=== PATIENT | male | born 1955 | race Caucasian/White ===

== ENCOUNTER → 2016-04-08 | Outpatient (CLI) | payer OTHER ==
[~2016-04-08] MED LIST: ADAL40KI SC; ASPI81TA28 PO; BACL10TA PO; CEPH500C PO; CLR10 PO; CYCL5TAB PO; DOCU-94 PO; DOXY100C76 PO; DRGTP50 TD; FNTTP50 TD; GABA1CAP5 PO; LORA24TA7 PO; LVT/20 PO; MULT-506 PO; NRN100 PO; OXYC-164 PO; OXYC-609 PO; OXYSR10 PO; RIVA1TAB4 PO; XRL15 PO
[2016-04-08 13:15] LABS: BASO % 0.6 %; BASO ABS # 0.05 K/uL (0-0.2); COMPLETE YES; EOS % 4.5 %; HEMATOCRIT 42.4 % (42-52); IG% 0.1 %; LYMPH % 26.1 %; LYMPH ABS # 2.02 K/uL (1.2-3.4); MEAN CORPUSCULAR HEMOGLOBIN 29.1 pg (25-34); MEAN CORPUSCULAR HGB CONC 34.2 g/dl (32-36); MEAN PLATELET VOLUME 9.3 fL (7.4-10.4); MONO % 15.1 %; NEUT % 53.6 %; PLATELET COUNT 359 K/uL (130-400); RED BLOOD COUNT 4.99 M/uL (4.7-6.1); WHITE BLOOD COUNT 7.75 K/uL (4.8-10.8)
[2016-04-08 13:31] LABS: ALT/SGPT 28 U/L (12-78); AST/SGOT 18 U/L (15-37); BLOOD UREA NITROGEN 16 mg/dl (7-18); CALCIUM 9.3 mg/dl (8.5-10.1); CARBON DIOXIDE 27 mmol/L (21-32); CHLORIDE 102 mmol/L (98-107); CREATININE 0.91 mg/dl (0.60-1.40); GLUCOSE 86 mg/dl (70-99); SODIUM 138 mmol/L (136-145)
[2016-04-08 13:34] LABS: ALB/GLOB RATIO 0.8 (0.9-2); ALKALINE PHOSPHATASE 120 U/L (45-117)
== END | disposition home or self-care (01) ==
LOC: C.LAB1850 12:08
PROVIDERS: ATTEND Internal Medicine
DX: K51.20 Ulcerative (chronic) proctitis without complications (principal)

== ENCOUNTER → 2016-04-20 | Outpatient (CLI) | payer OTHER ==
[~2016-04-20] MED LIST changes: -BACL10TA PO; -CEPH500C PO; -MULT-506 PO; -OXYC-164 PO
--- NOTE | 2016-04-20 11:26 | DIAGNOSTIC IMAGING REPORT ---
RIGHT SHOULDER MIN 2 VIEWS ROUTINE CLINICAL HISTORY: Right shoulder pain COMPARISON: None. DISCUSSION: No fractures or dislocations are visualized. Degenerative changes are present within the AC joint. Several corticated ossicles are visualized adjacent the superior margin of the distal clavicle. No peritendinous calcifications are visualized. IMPRESSION: 1. No acute fractures or dislocations 2. Degenerative changes in the AC joint. Electronically signed by: Fuad Godinez M.D. 04/20/2016 11:23 AM Dictated Date/Time: 04/20/2016 11:22 AM
--- NOTE | 2016-04-20 11:31 | DIAGNOSTIC IMAGING REPORT ---
LEFT SHOULDER 3 VIEWS HISTORY: M25.511 Shoulder pain, bilateral anterior shoulder pain x 2 weeks COMPARISON: None. FINDINGS: There is no fracture or dislocation. Soft tissues are unremarkable. No radiopaque foreign bodies. Degenerative changes are noted at the AC joint. Old, healed left posterior rib fractures. The left clavicle is intact. Mild cartilage space narrowing at the glenohumeral joint. IMPRESSION: Mild degenerative changes within the left shoulder. No acute fracture or dislocation. Electronically signed by: Jose Hernandez M.D. 04/20/2016 11:29 AM Dictated Date/Time: 04/20/2016 11:28 AM
== END | disposition home or self-care (01) ==
LOC: C.RAD1850 11:05
PROVIDERS: ATTEND Family Medicine
DX: Z96.649 Presence of unspecified artificial hip joint (principal); T84.038A Mechanical loosening of other internal prosthetic joint, initial encounter; Y83.1 Surgical operation with implant of artificial internal device as the cause of abnormal reaction of the patient, or of later complication, without mention of misadventure at the time of the procedure; M25.511 Pain in right shoulder; M25.512 Pain in left shoulder

== ENCOUNTER 2016-06-05 07:46 | Emergency (ER) | payer OTHER ==
[~2016-06-05] VITALS: Ht 175.3 cm; Wt 84.0 kg
[~2016-06-05 07:46] MED LIST changes: -ASPI81TA28 PO; -CLR10 PO; -CYCL5TAB PO; -DOCU-94 PO; -DOXY100C76 PO; -DRGTP50 TD; -FNTTP50 TD; -GABA1CAP5 PO; -NRN100 PO; -OXYC-609 PO; -OXYSR10 PO; -RIVA1TAB4 PO; -XRL15 PO
[2016-06-05 07:50] VITALS: TEMP 36.8; Ht 175.3 cm; Wt 84.0 kg
[2016-06-05] MEDS ORDERED: CYCL5TAB PO (07:57)
[2016-06-05] MEDS ORDERED: NRN100 PO (07:57)
[2016-06-05] MEDS ORDERED: OXYC-609 PO (07:57)
[2016-06-05] MEDS ORDERED: ASPI81TA28 PO (07:57)
[2016-06-05] MEDS ORDERED: DOCU-94 PO (07:57)
[2016-06-05] MEDS ORDERED: ONDANSETRON INJ 2 MG/ML 2 ML VIAL IV STA (08:14)
[2016-06-05] MEDS ORDERED: SODIUM CHLORIDE 0.9% 1000ML 1,000 ML IV STA (08:14)
[2016-06-05] MEDS ORDERED: KETOROLAC TROMETHAMINE 30 MG/ML VIAL IV STA (08:14)
[2016-06-05] MEDS ORDERED: FENTANYL 50 MCG/HR TDSY TD STA (08:14)
--- NOTE | 2016-06-05 08:18 | EMERGENCY ROOM VISIT NOTE ---
History Report prepared by Lurdes: Teresa Tarango Under the Supervision of: Dr. Eliseo Delgado M.D. First contact with patient: 07:49 Chief Complaint: HIP PAIN Stated Complaint: PAIN History of Present Illness The patient is a 60 year old male who presents to the Emergency Room with complaints of persistent right hip pain. He was brought to the ED via EMS and is accompanied by his . He reports he underwent a total hip revision at [facility] on May 21, 2016, performed by Dr. Galindo. His next follow up appointment is in July. He rates his current pain as a 7/10 and describes the pain as "throbbing" and feeling "like a Fabian horse" cramp". He has tried taking OxyContin and muscle relaxers, but states "nothing touches it". He denies any recent injury or trauma to the area, except for the surgery 2 weeks ago. The patient reports he originally had his hip replaced by Dr. Stacy at [facility] in [place]. He has not seen any local Orthopedist. He denies any numbness or tingling in his leg. He notes the original hip replacement left him with a foot drop on the right side, and that has been unchanged. His surgical incision appears to be healing well and he denies any redness or discharge from the area. Source of History: patient Onset: [employer] Position: other (right hip) Symptom Intensity: 7/10 Quality: cramping, other ("throbbing") Timing: other (persistent) Modifying Factors (Relieving): narcotics (OxyContin), other (muscle relaxers ) Associated Symptoms: No numbness (numbness or tingling in the leg) Review of Systems See HPI for pertinent positives & negatives. A total of 10 systems reviewed and were otherwise negative. Past Medical & Surgical Surgical Problems: (1) History of appendectomy (2) Hx of lithotripsy (3) S/P hip replacement Social History Smoking Status: Never Smoker Alcohol Use: occasionally Drug Use: none Marital Status: Housing Status: lives with family Occupation Status: employed Current/Historical Medications Scheduled Adalimumab (Humira Pen), 1 DOSE SC Q2WKS Aspirin (Aspirin Ec), 81 MG PO DAILY Docusate Sodium (Colace), 100 MG PO BID Fentanyl (Duragesic), 50 MCG TD CQ72HR Gabapentin (Gabapentin), 100 MG PO TID Scheduled PRN Cyclobenzaprine Hcl (Flexeril), 5 MG PO TID PRN for Muscle Spasms Oxycodone HCl (Oxycodone HCl), 5-10 MG PO Q4 PRN for Pain Allergies Coded Allergies: Hydromorphone (Verified Allergy, Unknown, MUSCLE SPASMS, 06/05/16) Morphine (Verified Allergy, Unknown, "NAUSEA", 06/05/16) Physical Exam Vital Signs Date Time Temp Pulse Resp B/P Pulse Ox O2 Delivery O2 Flow Rate FiO2 06/05/16 12:11 78 18 126/80 96 Room Air 06/05/16 12:04 78 18 126/80 96 06/05/16 10:41 100 18 133/83 96 Room Air 06/05/16 10:01 74 20 131/82 95 Room Air 06/05/16 07:50 36.8 98 20 141/85 99 Room Air Physical Exam GENERAL: Patient is a healthy-appearing well-nourished HEAD: Normocephalic atraumatic EYES: Ocular movements intact pupils equal and react to light OROPHARYNX mucous membranes are moist no exudates present no erythema or edema present NECK: Supple no nuchal rigidity CHEST: Good equal expansion LUNGS: Clear and equal to auscultation CARDIAC: Normal S1 and S2 ABDOMEN: Soft nontender no guarding BACK: No CVA tenderness EXTREMITIES: Healing surgical incision, no evidence of infection of surgical site, good ROM right hip. The patient can pinpoint his pain and states it actually feels better to press on the area. NEURO: Patient is following commands is answering questions appropriately. Alert and oriented x3 Cranial Nerves 2-12 grossly intact Medical Decision & Procedures ER Provider Diagnostic Interpretation: These X-Rays were reviewed and interpreted by myself and the radiologist. RIGHT FEMUR 2 VIEWS IMPRESSION: 1. No acute bony abnormality is seen in the right femur. 2. A right hip arthroplasty is in near-anatomic alignment, with evidence of interval revision as compared to 02/05/2016. There is no evidence of hardware malfunction. 3. Soft tissue edema overlying the right hip is nonspecific and likely related recent surgery. Electronically signed by: Mann Cantu M.D. 06/05/2016 9:59 AM SINGLE VIEW PELVIS IMPRESSION: 1. No acute bony abnormality is seen in the hips or pelvis. 2. A right hip arthroplasty is in near-anatomic alignment. There is evidence of interval revision is compared to 10/18/2013. Electronically signed by: Mann Cantu M.D. 06/05/2016 9:56 AM This Ultrasound was reviewed and interpreted by the radiologist and reviewed by myself. ULTRASOUND RIGHT LOWER EXTREMITY VENOUS IMPRESSION: There is no sonographic evidence of deep venous thrombosis identified in the right lower extremity. Electronically signed by: Mann Cantu M.D. 06/05/2016 9:59 AM Laboratory Results 06/05/16 08:35 Red Blood Count 3.26, Mean Corpuscular Volume 85.0, Mean Corpuscular Hemoglobin 28.2, Mean Corpuscular Hemoglobin Concent 33.2, Mean Platelet Volume 8.4, Neutrophils (%) (Auto) 66.0, Lymphocytes (%) (Auto) 21.7, Monocytes (%) (Auto) 8.2, Eosinophils (%) (Auto) 3.4, Basophils (%) (Auto) 0.6, Neutrophils # (Auto) 6.12, Lymphocytes # (Auto) 2.01, Monocytes # (Auto) 0.76, Eosinophils # (Auto) 0.32, Basophils # (Auto) 0.06 06/05/16 08:35 Test 06/05/16 08:35 White Blood Count 9.28 K/uL (4.8-10.8) Red Blood Count 3.26 M/uL (4.7-6.1) Hemoglobin 9.2 g/dL (14.0-18.0) Hematocrit 27.7 % (42-52) Mean Corpuscular Volume 85.0 fL (80-100) Mean Corpuscular Hemoglobin 28.2 pg (25-34) Mean Corpuscular Hemoglobin Concent 33.2 g/dl (32-36) Platelet Count 809 K/uL (130-400) Mean Platelet Volume 8.4 fL (7.4-10.4) Neutrophils (%) (Auto) 66.0 % Lymphocytes (%) (Auto) 21.7 % Monocytes (%) (Auto) 8.2 % Eosinophils (%) (Auto) 3.4 % Basophils (%) (Auto) 0.6 % Neutrophils # (Auto) 6.12 K/uL (1.4-6.5) Lymphocytes # (Auto) 2.01 K/uL (1.2-3.4) Monocytes # (Auto) 0.76 K/uL (0.11-0.59) Eosinophils # (Auto) 0.32 K/uL (0-0.5) Basophils # (Auto) 0.06 K/uL (0-0.2) RDW Standard Deviation 44.4 fL (36.4-46.3) RDW Coefficient of Variation 14.1 % (11.5-14.5) Immature Granulocyte % (Auto) 0.1 % Immature Granulocyte # (Auto) 0.01 K/uL (0.00-0.02) Erythrocyte Sedimentation Rate 61 mm/hr (0-14) Anion Gap 8.0 mmol/L (3-11) Est Creatinine Clear Calc Drug Dose 93.5 ml/min Estimated GFR () 109.8 Estimated GFR (Non- 94.8 BUN/Creatinine Ratio 16.2 (10-20) Uric Acid 3.9 mg/dl (2.6-7.2) Calcium Level 8.7 mg/dl (8.5-10.1) Total Bilirubin 0.3 mg/dl (0.2-1) Direct Bilirubin < 0.1 mg/dl (0-0.2) Aspartate Amino Transf (AST/SGOT) 20 U/L (15-37) Alanine Aminotransferase (ALT/SGPT) 55 U/L (12-78) Alkaline Phosphatase 326 U/L (45-117) C-Reactive Protein 3.47 mg/dl (0-0.29) Total Protein 7.2 gm/dl (6.4-8.2) Albumin 2.8 gm/dl (3.4-5.0) Thyroid Stimulating Hormone (TSH) 1.740 uIu/ml (0.300-4.500) Lyme Disease IgG Antibody NEG (NEG) Lyme Disease IgM Antibody NEG (NEG) Anti-Streptolysin O Antibody Screen POS IU/ml (<200 IU) Anti-Streptolysin O Antibody Titer 200 IU/ml (<200 IU) Labs reviewed by ED physician. Medications Administered Medications (Trade) Dose Ordered Sig/Angelina Route Start Time Stop Time Status Last Admin Dose Admin Sodium Chloride (Nss 1000ml) 1,000 ml @ 999 mls/hr Q1H1M STAT IV 06/05/16 08:14 06/05/16 09:14 DC 3/4/17 08:31 999 MLS/HR Ketorolac Tromethamine (Toradol Inj) 30 mg NOW STAT IV 06/05/16 08:14 06/05/16 08:17 DC 06/05/16 08:33 30 MG Fentanyl (Duragesic Patch) 50 mcg NOW STAT TD 06/05/16 08:14 06/05/16 08:17 DC 06/05/16 08:32 50 MCG Ondansetron HCl (Zofran Inj) 4 mg NOW STAT IV 06/05/16 08:14 06/05/16 08:17 DC 06/05/16 08:31 4 MG Morphine Sulfate (MoRPHine SULFATE INJ) 10 mg NOW STAT IV 06/05/16 09:05 06/05/16 09:07 DC 06/05/16 09:13 10 MG Metoclopramide HCl (Reglan Inj) 10 mg NOW STAT IV 06/05/16 09:05 06/05/16 09:07 DC 06/05/16 09:13 10 MG Morphine Sulfate 6 mg 6 mg NOW STAT IV 06/05/16 10:16 06/05/16 10:17 DC 06/05/16 10:16 6 MG Promethazine HCl/ Sodium Chloride (Phenergan Inj/ Nss 50ml) 51 ml @ 204 mls/hr NOW STAT IV 06/05/16 10:16 06/05/16 10:30 DC 06/05/16 10:41 204 MLS/HR ED Course 0807: Past medical records reviewed. The patient was evaluated in room B2. A complete history and physical examination was performed. 0814: Zofran 4 mg IV, Fentanyl 50 mcg TD, Toradol 30 mg IV, NSS 1000 ml @ 999 mls/hr IV. 0905: Reglan 10 mg IV, Morphine Sulfate 10 mg IV. 1015: I reevaluated the patient. He is still in some pain but feeling a little better. I discussed his results and discharge instructions and he verbalized complete understanding and agreement. 1016: Promethazine HCl 25 mg/NSS 51 ml @ 204 mls/hr IV, Morphine Sulfate 6 mg IV. Medical Decision Prior records reviewed and summarized above. Triage Nursing notes reviewed and agree them. The patient's history was concerning for traumatic injury. Differential diagnosis: Etiologies such as fracture, dislocation, neurovascular compromise, compartment syndrome, soft tissue injury, as well as others were entertained. This is a 60-year-old male who presents emergency department complaining of right hip pain. Patient was recently placed on Neurontin for "nerve pain.' Due to the surgery. The patient does not have any evidence of infection on examination and in addition the patient has free range of motion of the hip. Based on this finding I feel that an infection less likely. In addition the patient does not have an elevation in his white blood count. His ESR and CRP are elevated however this could be from the surgery. An IV was established, the patient is given normal saline bolus, Toradol and started on a fentanyl patch. The patient was then given morphine for the pain along with Zofran and Reglan. Repeat examination revealed much improvement patient's symptoms. The patient has a blood clot ultrasound. As he is point tender to the pain I again do not feel that this is an infection. The patient has been using a walker ever since his surgery. He was ambulated in the emergency department using the walker. I will trial the patient patches at home until follow-up with orthopedics. I stressed the patient the need to call orthopedics on Tuesday. I also offered case management to try and get the patient in touch with orthopedics however the patient refused. Impression Primary Impression: Hip pain Scribe Attestation The scribe's documentation has been prepared under my direction and personally reviewed by me in its entirety. I confirm that the note above accurately reflects all work, treatment, procedures, and medical decision making performed by me. Departure Information Dispostion Home / Self-Care Prescriptions Fentanyl (DURAGESIC) 50 Mcg Tdsy 50 MCG TD CQ72HR, #2 PATCH Prov: Eliseo Delgado MD 06/05/16 Referrals Jack Negro M.D. (PCP) Patient Instructions Fentanyl Transdermal patch - 72 hour, Fx Hip Surg Dc, Fx Hip Surg Home Recovery , My [facility] Additional Instructions Need follow up with Orthopaedic doctor this week You received narcotic or benzodiazepene medication while in the emergency room today. Do not drive, operate heavy machinery, or drink alcohol under the influence of this medication. You have been examined and treated today on an emergency basis only. This is not a substitute for, or an effort to provide, complete comprehensive medical care. It is impossible to recognize and treat all injuries or illnesses in a single emergency department visit. It is therefore important that you follow up closely with Dr Negro. Call as soon as possible for an appointment. Thank you for your time and consideration. I look forward to speaking with you again soon. Please don't hesitate to call us if you have any questions. Problem Qualifiers Primary Impression: Hip pain Laterality: right Qualified Codes: M25.551 - Pain in right hip
[2016-06-05 08:49] LABS: BASO % 0.6 %; BASO ABS # 0.06 K/uL (0-0.2); COMPLETE YES; EOS % 3.4 %; HEMATOCRIT 27.7 % (42-52); IG% 0.1 %; LYMPH % 21.7 %; LYMPH ABS # 2.01 K/uL (1.2-3.4); MEAN CORPUSCULAR HEMOGLOBIN 28.2 pg (25-34); MEAN CORPUSCULAR HGB CONC 33.2 g/dl (32-36); MEAN PLATELET VOLUME 8.4 fL (7.4-10.4); MONO % 8.2 %; PLATELET COUNT 809 K/uL (130-400); RED BLOOD COUNT 3.26 M/uL (4.7-6.1); WHITE BLOOD COUNT 9.28 K/uL (4.8-10.8)
[2016-06-05 09:04] LABS: ALT/SGPT 55 U/L (12-78); BLOOD UREA NITROGEN 13 mg/dl (7-18); BUN/CREATININE RATIO 16.2 (10-20); C-REACTIVE PROTEIN 3.47 mg/dl (0-0.29); CALCIUM 8.7 mg/dl (8.5-10.1); CARBON DIOXIDE 26 mmol/L (21-32); CHLORIDE 105 mmol/L (98-107); CREATININE 0.82 mg/dl (0.60-1.40); GLUCOSE 92 mg/dl (70-99); POTASSIUM 3.8 mmol/L (3.5-5.1); SODIUM 139 mmol/L (136-145); URIC ACID 3.9 mg/dl (2.6-7.2)
[2016-06-05] MEDS ORDERED: MoRPHine SULFATE 10 MG/ML CARP/VIAL IV STA ×2 (09:05→10:16)
[2016-06-05] MEDS ORDERED: METOCLOPRAMIDE HCL INJ 5 MG/ML 2 ML VIAL IV STA (09:05)
[2016-06-05 09:15] LABS: ALKALINE PHOSPHATASE 326 U/L (45-117); AST/SGOT 20 U/L (15-37)
[2016-06-05 09:30] LABS: ANTI-STREP O SCR: 5YRS OR > POS IU/ml (<200 IU)
[2016-06-05 09:44] LABS: ANTI-STREP O TITRE: 5YR OR > 200 IU/ml (<200 IU)
[2016-06-05 09:52] LABS: LYME DISEASE AB IGG NEG (NEG)
[2016-06-05 09:55] LABS: LYME DISEASE AB IGM NEG (NEG)
--- NOTE | 2016-06-05 09:57 | DIAGNOSTIC IMAGING REPORT ---
SINGLE VIEW PELVIS CLINICAL HISTORY: Right hip pain. FINDINGS: An AP pelvic radiograph is compared to study dated 10/18/2013. The skeletal structures are osteopenic. No fracture is seen. A right hip arthroplasty is in near-anatomic alignment. There is evidence of interval arthroplasty revision as compared to the 10/18/2013 examination. Mild arthritic change is noted in the left hip. There is minimal sclerotic change in the sacroiliac joints. Heterotopic bone is again seen superior to the greater trochanter of the right femur. The overlying soft tissues are within normal limits. Surgical clips are noted along the spermatic cord bilaterally. Phlebolith are observed in the pelvis. There is a nonobstructed abdominal bowel gas pattern. IMPRESSION: 1. No acute bony abnormality is seen in the hips or pelvis. 2. A right hip arthroplasty is in near-anatomic alignment. There is evidence of interval revision is compared to 10/18/2013. Electronically signed by: Mann Cantu M.D. 06/05/2016 9:56 AM Dictated Date/Time: 06/05/2016 9:54 AM
--- NOTE | 2016-06-05 10:00 | DIAGNOSTIC IMAGING REPORT ---
RIGHT FEMUR 2 VIEWS CLINICAL HISTORY: Right hip pain. Recent arthroplasty revision. FINDINGS: AP and crosstable lateral views of the right femur are correlated with radiographs of the right hip dated 02/05/2016. The skeletal structures are osteopenic. No fracture is seen. A right hip arthroplasty is in near-anatomic alignment. There is evidence of interval revision as compared to 02/05/2016. No periprosthetic lucency is identified. Heterotopic bone superior to the greater trochanter of the right femur is unchanged from previous. The knee joint is grossly maintained. Soft tissue edema overlies the right hip. Surgical clips project over the right hemiscrotum. IMPRESSION: 1. No acute bony abnormality is seen in the right femur. 2. A right hip arthroplasty is in near-anatomic alignment, with evidence of interval revision as compared to 02/05/2016. There is no evidence of hardware malfunction. 3. Soft tissue edema overlying the right hip is nonspecific and likely related recent surgery. Electronically signed by: Mann Cantu M.D. 06/05/2016 9:59 AM Dictated Date/Time: 06/05/2016 9:56 AM
--- NOTE | 2016-06-05 10:01 | DIAGNOSTIC IMAGING REPORT ---
ULTRASOUND RIGHT LOWER EXTREMITY VENOUS CLINICAL HISTORY: Right leg pain and swelling. COMPARISON STUDY: Right lower extremity venous ultrasound dated 01/30/2009. TECHNIQUE: Real-time, grayscale, and color Doppler sonography of the deep veins of the right lower extremity was performed from the inguinal crease to the calf. Compression and augmentation were utilized. FINDINGS: There is no sonographic evidence of deep venous thrombosis identified in the right lower extremity. The common femoral, superficial femoral, and popliteal veins are patent and normally compressible. The greater saphenous vein and the profunda femoris vein at the junction with the common femoral vein are clear. The visualized calf veins are patent. IMPRESSION: There is no sonographic evidence of deep venous thrombosis identified in the right lower extremity. Electronically signed by: Mann Cantu M.D. 06/05/2016 9:59 AM Dictated Date/Time: 06/05/2016 9:59 AM
[2016-06-05] MEDS ORDERED: PROMETHAZINE HCL INJ 25 MG in SODIUM CHLORIDE 0.9% 50ML 50 ML IV STA (10:16)
[2016-06-05] MEDS ORDERED: FNTTP50 TD (10:17)
[2016-06-05 12:11] VITALS: BP 126/80; PULSE 78; O2SAT 96
[2016-06-13] MEDS ORDERED: XRL15 PO (12:11)
[2016-06-13] MEDS ORDERED: RIVA1TAB4 PO (12:11)
[2016-07-30] MEDS ORDERED: GABA1CAP5 PO (09:47)
[2016-12-30] MEDS ORDERED: CLR10 PO (09:12)
[2016-12-30] MEDS ORDERED: DOXY100C76 PO (09:13)
== END 2016-06-05 12:09 | disposition home or self-care (01) ==
LOC: EDBD 07:46 → C.EDB 07:47
DX: M25.551 Pain in right hip (principal); Z79.82 Long term (current) use of aspirin; Z79.899 Other long term (current) drug therapy

== ENCOUNTER 2016-06-12 13:31 | Observation (INO) | payer OTHER ==
[~2016-06-12] VITALS: Ht 175.3 cm; Wt 79.9 kg
[~2016-06-12 13:31] MED LIST changes: +ASPI81TA28 PO; +CYCL5TAB PO; +DOCU-94 PO; +FNTTP50 TD; -LORA24TA7 PO; -LVT/20 PO; +NRN100 PO; +OXYC-609 PO
--- NOTE | 2016-06-12 14:22 | EMERGENCY ROOM VISIT NOTE ---
History Report prepared by [place]: Tabby George Under the Supervision of: Dr. Everett Beltrán M.D. First contact with patient: 14:05 Chief Complaint: LEG PAIN,LEG INJURY Stated Complaint: LEG PAIN History of Present Illness The patient is a 60 year old male who presents to the Emergency Room with complaints of waxing and waning right leg pain over the past week, worsened over the past 30 hours. He states that it radiates through his right buttocks, right quadriceps, right hamstring, and right calf. He also complains of numbness in his right foot. The patient was treated for similar pain in the emergency room a week ago. The patient had hip replacement revision surgery on May 21 of this year at [facility]. He was discharged from the hospital after 4 days and then stayed in a hotel in [place] for 4-5 days before getting his sean out. Afterwards, he rode back to [place] in a car and he has been having similar pain since then. He has also had right foot drop since the surgery. He can only get his leg pain under control for brief periods of time. He had in home and outpatient physical therapy, but the physical therapists did not want to proceed because of his persistent pain. The patient has been looking into seeing a neurologist here for his pain for an EMG , but his doctor at [place] wants the patient to see a ticket broker. The patient has a history of spinal stenosis. He denies fevers, chills, chest pain, shortness of breath, bladder problems, back pain, or other complaints. The patient was on Humira for IBS but was taken off of it prior to his surgery. He has not had any bowel problems since discontinuing the Humira. He is taking Oxycodone and Gabapentin with little relief. Source of History: patient, spouse/significant other Onset: over a week ago Position: leg (right) Timing: waxes/wanes, worsening Associated Symptoms: + numbness (right foot), No SOB, No back pain, No chest pain, No chills, No fevers Review of Systems See HPI for pertinent positives & negatives. A total of 10 systems reviewed and were otherwise negative. Past Medical & Surgical Medical Problems: (1) DVT (deep venous thrombosis) (2) Intractable pain Surgical Problems: (1) History of appendectomy (2) Hx of lithotripsy (3) S/P hip replacement Old medical records were reviewed. Nurse's notes were reviewed and I agree with. Family History No pertinent family history stated. Social History Smoking Status: Never Smoker Alcohol Use: occasionally Drug Use: none Marital Status: Housing Status: lives with family Occupation Status: employed Current/Historical Medications Scheduled Adalimumab (Humira Pen), 1 DOSE SC Q2WKS Aspirin (Aspirin Ec), 81 MG PO BID Docusate Sodium (Colace), 100 MG PO BID Fentanyl (Duragesic), 50 MCG TD CQ72HR Gabapentin (Gabapentin), 300 MG PO TID Scheduled PRN Cyclobenzaprine Hcl (Flexeril), 5 MG PO TID PRN for Muscle Spasms Oxycodone HCl (Oxycodone HCl), 5-10 MG PO Q4 PRN for Pain Allergies Coded Allergies: Hydromorphone (Verified Allergy, Unknown, MUSCLE SPASMS, 06/12/16) Morphine (Verified Allergy, Unknown, "NAUSEA", 06/12/16) pt said was given morphine last time here with no reaction, confirms hydromorphone allergy Physical Exam Vital Signs Date Time Temp Pulse Resp B/P Pulse Ox O2 Delivery O2 Flow Rate FiO2 06/12/16 16:34 87 20 131/82 96 Room Air 06/12/16 15:01 101 18 124/93 98 Room Air 06/12/16 13:35 36.7 101 17 136/91 98 Room Air Physical Exam General: Mildly uncomfortable appearing middle aged male who has pain with right leg movement. Well developed well nourished, breathing comfortably on room air. Normal speech HEENT: Normal cephalic atraumatic. Pupils are equal round and reactive to light. Extraocular movements are intact. Oropharynx is pink with moist mucous membranes. No swelling of the mouth lips or tongue. Neck: Supple with a midline trachea. No meningeal signs or stiffness, no JVD or bruits. No Stridor. Chest: Clear to auscultation bilaterally. No wheezes or rhonchi. No increased work of breathing. Heart: regular rate and rhythm. Abdomen: Soft nontender, nondistended without rebound guarding or rigidity. Extremities: The incision is well-healing without redness, warmth, or drainage. Mild swelling along the incision site. Calves are nontender without swelling. Spine/Back. Non tender to palpation. No CVA tenderness Skin: Good turgor without rashes. Neurologic exam: Cranial nerves two through 12 are intact. Foot drop on the right; otherwise motor and sensation are intact and symmetrical throughout. Medical Decision & Procedures ER Provider Diagnostic Interpretation: Radiology results as stated below per my review and radiologist interpretation: ULTRASOUND RIGHT VENOUS DOPP LOWER EXT UNILAT CLINICAL HISTORY: Right leg pain and swelling COMPARISON STUDY: 06/05/2016 FINDINGS: No thrombus is visualized within the common femoral superficial femoral or popliteal veins. There is nonocclusive thrombus present within the right peroneal veins. The anterior tibial posterior tibial veins appear patent. IMPRESSION: Right peroneal vein DVT. No evidence of aqwtu-[id number]-jmbq thrombus. Electronically signed by: Fuad Godinez M.D. 06/12/2016 4:27 PM Dictated Date/Time: 06/12/2016 4:25 PM ARTERIAL DOPPLER ULTRASOUND THE RIGHT LOWER EXTREMITY CLINICAL HISTORY: Right leg pain and swelling COMPARISON STUDY: No previous studies for comparison. FINDINGS: The left arm brachial systolic pressure was 125 mmHg. The right posterior tibial pressure was 157 mmHg systolic. The left dorsalis pedis pressure was 151 mmHg systolic. This yields a right leg ankle arm index of 1.26. No high velocity jets were visualized. There is triphasic flow within the common femoral superficial femoral and popliteal arteries. There is triphasic flow within the anterior tibial and posterior tibial arteries proximally. There is monophasic flow within the distal posterior tibial. There is triphasic flow within the peroneal. IMPRESSION: No evidence of right lower extremity arterial stenosis. Electronically signed by: Fuad Godinez M.D. 06/12/2016 4:32 PM Dictated Date/Time: 06/12/2016 4:27 PM Laboratory Results 06/12/16 14:53 Red Blood Count 3.91, Mean Corpuscular Volume 82.9, Mean Corpuscular Hemoglobin 27.4, Mean Corpuscular Hemoglobin Concent 33.0, Mean Platelet Volume 8.4, Neutrophils (%) (Auto) 62.9, Lymphocytes (%) (Auto) 27.9, Monocytes (%) (Auto) 5.8, Eosinophils (%) (Auto) 2.8, Basophils (%) (Auto) 0.5, Neutrophils # (Auto) 5.18, Lymphocytes # (Auto) 2.30, Monocytes # (Auto) 0.48, Eosinophils # (Auto) 0.23, Basophils # (Auto) 0.04 06/12/16 14:53 Test 06/12/16 14:53 White Blood Count 8.24 K/uL (4.8-10.8) Red Blood Count 3.91 M/uL (4.7-6.1) Hemoglobin 10.7 g/dL (14.0-18.0) Hematocrit 32.4 % (42-52) Mean Corpuscular Volume 82.9 fL (80-100) Mean Corpuscular Hemoglobin 27.4 pg (25-34) Mean Corpuscular Hemoglobin Concent 33.0 g/dl (32-36) Platelet Count 569 K/uL (130-400) Mean Platelet Volume 8.4 fL (7.4-10.4) Neutrophils (%) (Auto) 62.9 % Lymphocytes (%) (Auto) 27.9 % Monocytes (%) (Auto) 5.8 % Eosinophils (%) (Auto) 2.8 % Basophils (%) (Auto) 0.5 % Neutrophils # (Auto) 5.18 K/uL (1.4-6.5) Lymphocytes # (Auto) 2.30 K/uL (1.2-3.4) Monocytes # (Auto) 0.48 K/uL (0.11-0.59) Eosinophils # (Auto) 0.23 K/uL (0-0.5) Basophils # (Auto) 0.04 K/uL (0-0.2) RDW Standard Deviation 42.3 fL (36.4-46.3) RDW Coefficient of Variation 14.0 % (11.5-14.5) Immature Granulocyte % (Auto) 0.1 % Immature Granulocyte # (Auto) 0.01 K/uL (0.00-0.02) Erythrocyte Sedimentation Rate 80 mm/hr (0-14) Anion Gap 10.0 mmol/L (3-11) Est Creatinine Clear Calc Drug Dose 103.6 ml/min Estimated GFR () 114.6 Estimated GFR (Non- 98.9 BUN/Creatinine Ratio 11.4 (10-20) Calcium Level 9.1 mg/dl (8.5-10.1) Iron Level 21 mcg/dl (35-175) Total Iron Binding Capacity 270 mcg/dl (250-450) C-Reactive Protein 1.72 mg/dl (0-0.29) Laboratory studies as stated above per my review. Medications Administered Medications (Trade) Dose Ordered Sig/Angelina Route Start Time Stop Time Status Last Admin Dose Admin Ondansetron HCl (Zofran Inj) 4 mg NOW STAT IV 06/12/16 14:30 06/12/16 14:32 DC 06/12/16 15:00 4 MG Morphine Sulfate (MoRPHine SULFATE INJ) 6 mg NOW STAT IV 06/12/16 14:30 06/12/16 14:32 DC 06/12/16 15:00 6 MG Ketorolac Tromethamine (Toradol Inj) 30 mg NOW STAT IV 06/12/16 16:21 06/12/16 16:22 DC 06/12/16 16:34 30 MG ED Course 1409: Past medical records reviewed. The patient was evaluated in room B5, and a complete history and physical examination were performed. 1430: Ordered Morphine Sulfate 6 mg IV, Zofran Inj 4 mg IV. 1431: The patient has had mild nausea with Morphine in the past but states that he did well with Morphine and Zofran during his last visit. 1621: Ordered Toradol Inj 30 mg IV. 1640: Upon reevaluation, the patient is feeling a little better. I discussed the results and treatment plan with the patient. He verbalized agreement of the treatment plan. The patient will be evaluated for further management. 1645: I discussed the case with Dr. Jones, [facility] Hospitalist. The patient will be evaluated for further management. Medical Decision Differential diagnosis includes DVT, infection, arterial compromise, compartment syndrome, nerve damage, sciatica. This patient comes in as described above. He was placed in room B5. He is here for treatment and evaluation of right leg pain. He suffered a foot drop after surgery and continues to have leg pain. it's been pretty severe at home and he has a difficult time getting around and controlling the pain. Additionally they have been having a hard time getting him in with any specialists for follow-up and his is very frustrated. On exam, he does have a foot drop the and appears to be healing well, he is neurologically and neurovascularly intact otherwise. IV access established, blood work was obtained and I did ultrasound of the venous and arterial systems. arterial systems looked okay. the venous system shows a distal DVT in the right lower extremity that was not there a week ago. His sedimentation rate and CRP are mildly elevated. He was given IV morphine and IV Zofran was feeling better is also given IV Toradol. I do think he needs to be admitted for treatment of his DVT as well as pain management and coordination of his care. He does need to get in with a neurologist may be of orthopedist see him locally as well as pain management. I did have Dr. Arauz and he said he will admit him for these measures. Consults Time Called: 1635 Consulting Physician: Dr. Jones, [facility] Hospitalist Returned Call: 1645 I discussed the case with him. The patient will be evaluated for further management. Impression Primary Impression: DVT (deep venous thrombosis) Additional Impressions: Foot drop Postoperative pain Scribe Attestation The scribe's documentation has been prepared under my direction and personally reviewed by me in its entirety. I confirm that the note above accurately reflects all work, treatment, procedures, and medical decision making performed by me. Departure Information Dispostion Being Evaluated By Hospitalist Referrals ,Jack Calderon M.D. (PCP) Patient Instructions My [facility] Problem Qualifiers
[2016-06-12] MEDS ORDERED: MoRPHine SULFATE 10 MG/ML CARP/VIAL IV STA (14:30)
[2016-06-12] MEDS ORDERED: ONDANSETRON INJ 2 MG/ML 2 ML VIAL IV STA (14:30)
[2016-06-12 15:00] LABS: BASO % 0.5 %; BASO ABS # 0.04 K/uL (0-0.2); COMPLETE YES; EOS % 2.8 %; HEMATOCRIT 32.4 % (42-52); IG% 0.1 %; LYMPH % 27.9 %; MEAN CELL VOLUME 82.9 fL (80-100); MEAN CORPUSCULAR HEMOGLOBIN 27.4 pg (25-34); MEAN PLATELET VOLUME 8.4 fL (7.4-10.4); MONO % 5.8 %; NEUT % 62.9 %; PLATELET COUNT 569 K/uL (130-400); RED BLOOD COUNT 3.91 M/uL (4.7-6.1); WHITE BLOOD COUNT 8.24 K/uL (4.8-10.8)
[2016-06-12 15:14] LABS: BUN/CREATININE RATIO 11.4 (10-20); C-REACTIVE PROTEIN 1.72 mg/dl (0-0.29); CALCIUM 9.1 mg/dl (8.5-10.1); CREATININE 0.74 mg/dl (0.60-1.40); POTASSIUM 3.9 mmol/L (3.5-5.1)
[2016-06-12] MEDS ORDERED: KETOROLAC TROMETHAMINE 30 MG/ML VIAL IV STA (16:21)
--- NOTE | 2016-06-12 16:28 | DIAGNOSTIC IMAGING REPORT ---
ULTRASOUND RIGHT VENOUS DOPP LOWER EXT UNILAT CLINICAL HISTORY: Right leg pain and swelling COMPARISON STUDY: 06/05/2016 FINDINGS: No thrombus is visualized within the common femoral superficial femoral or popliteal veins. There is nonocclusive thrombus present within the right peroneal veins. The anterior tibial posterior tibial veins appear patent. IMPRESSION: Right peroneal vein DVT. No evidence of [id number] thrombus. Electronically signed by: Fuad Godinez M.D. 06/12/2016 4:27 PM Dictated Date/Time: 06/12/2016 4:25 PM
--- NOTE | 2016-06-12 16:33 | DIAGNOSTIC IMAGING REPORT ---
ARTERIAL DOPPLER ULTRASOUND THE RIGHT LOWER EXTREMITY CLINICAL HISTORY: Right leg pain and swelling COMPARISON STUDY: No previous studies for comparison. FINDINGS: The left arm brachial systolic pressure was 125 mmHg. The right posterior tibial pressure was 157 mmHg systolic. The left dorsalis pedis pressure was 151 mmHg systolic. This yields a right leg ankle arm index of 1.26. No high velocity jets were visualized. There is triphasic flow within the common femoral superficial femoral and popliteal arteries. There is triphasic flow within the anterior tibial and posterior tibial arteries proximally. There is monophasic flow within the distal posterior tibial. There is triphasic flow within the peroneal. IMPRESSION: No evidence of right lower extremity arterial stenosis. Electronically signed by: Fuad Godinez M.D. 06/12/2016 4:32 PM Dictated Date/Time: 06/12/2016 4:27 PM
[2016-06-12] MEDS ORDERED: ALUMINUM/MAGNESIUM/SIMETH (MAALOX MAX) 30 ML UDC PO PRN (17:45)
[2016-06-12] MEDS ORDERED: MAGNESIUM HYDROXIDE SUSP 30 ML UDC PO PRN (17:45)
[2016-06-12] MEDS ORDERED: POLYETHYLENE (MIRALAX) 17 GM PACK PO PRN (17:45)
[2016-06-12] MEDS ORDERED: HYDROmorphone INJ 1 MG/ML SYR ONE (17:59)
[2016-06-12] MEDS ORDERED: IV FLUIDS COMPLETED PRN (18:00)
[2016-06-12 18:03] LABS: TOTAL IRON BINDING CAPACITY 270 mcg/dl (250-450)
--- NOTE | 2016-06-12 18:10 | History and Physical ---
History & Physical Date & Time of Service: Jun 12, 2016 at 17:50 Chief Complaint: Leg Pain Primary Care Physician: Jack Negro M.D. History of Present Illness Source: patient 60 y/o M w/Hx UC, spinal stenosis. Pt had a hip replacement 03/19 and then a revision at [facility] 05/21. After the revision the pt developed foot drop and progressive pain extending from his gluteal region down into his foot which he describes as severe and debilitating. The pt is having increasing difficulty mobilizing and sleeping and has not had relief with his current pain regimen. He was told to make an appt with a neurologist for an EMG but has not been able to do so as of yet. A LE doppler was obtained in the ER revealing a peroneal DVT. He has a history of spinal stenosis and received an epidural during surgery. He has not had recent imaging of his lower back. He denies fevers, SOB, palpitations. Past Medical/Surgical History Surgical Problems: (1) History of appendectomy Status: Resolved (2) Hx of lithotripsy Status: Resolved (3) S/P hip replacement Status: Resolved Family History Reviewed - noncontributory Social History Smoking Status: Never Smoker Alcohol Use: socially Drug Use: none Marital Status: Occupational Status: employed Immunizations History of Influenza Vaccine: N/A History of Tetanus Vaccine?: Yes History of Pneumococcal: No History of Hepatitis B Vaccine: No Multi-Drug Resistant Organisms History of MDRO: No Allergies Coded Allergies: Hydromorphone (Verified Allergy, Unknown, MUSCLE SPASMS, 06/12/16) Morphine (Verified Allergy, Unknown, "NAUSEA", 06/12/16) pt said was given morphine last time here with no reaction, confirms hydromorphone allergy Home Medications Scheduled Adalimumab (Humira Pen), 1 DOSE SC Q2WKS Aspirin (Aspirin Ec), 81 MG PO BID Docusate Sodium (Colace), 100 MG PO BID Fentanyl (Duragesic), 50 MCG TD CQ72HR Gabapentin (Gabapentin), 300 MG PO TID Scheduled PRN Cyclobenzaprine Hcl (Flexeril), 5 MG PO TID PRN for Muscle Spasms Oxycodone HCl (Oxycodone HCl), 5-10 MG PO Q4 PRN for Pain Physical Exam Vital Signs Date Time Temp Pulse Resp B/P Pulse Ox O2 Delivery O2 Flow Rate FiO2 3/11/17 16:34 87 20 131/82 96 Room Air 06/12/16 15:01 101 18 124/93 98 Room Air 06/12/16 13:35 36.7 101 17 136/91 98 Room Air Diagnostics Laboratory Results Results Past 24 Hours Test 06/12/16 14:53 06/12/16 17:37 Range/Units White Blood Count 8.24 4.8-10.8 K/uL Red Blood Count 3.91 4.7-6.1 M/uL Hemoglobin 10.7 14.0-18.0 g/dL Hematocrit 32.4 42-52 % Mean Corpuscular Volume 82.9 80-100 fL Mean Corpuscular Hemoglobin 27.4 25-34 pg Mean Corpuscular Hemoglobin Concent 33.0 32-36 g/dl Platelet Count 569 130-400 K/uL Mean Platelet Volume 8.4 7.4-10.4 fL Neutrophils (%) (Auto) 62.9 % Lymphocytes (%) (Auto) 27.9 % Monocytes (%) (Auto) 5.8 % Eosinophils (%) (Auto) 2.8 % Basophils (%) (Auto) 0.5 % Neutrophils # (Auto) 5.18 1.4-6.5 K/uL Lymphocytes # (Auto) 2.30 1.2-3.4 K/uL Monocytes # (Auto) 0.48 0.11-0.59 K/uL Eosinophils # (Auto) 0.23 0-0.5 K/uL Basophils # (Auto) 0.04 0-0.2 K/uL RDW Standard Deviation 42.3 36.4-46.3 fL RDW Coefficient of Variation 14.0 11.5-14.5 % Immature Granulocyte % (Auto) 0.1 % Immature Granulocyte # (Auto) 0.01 0.00-0.02 K/uL Erythrocyte Sedimentation Rate 80 0-14 mm/hr Sodium Level 142 136-145 mmol/L Potassium Level 3.9 3.5-5.1 mmol/L Chloride Level 105 98-107 mmol/L Carbon Dioxide Level 27 21-32 mmol/L Anion Gap 10.0 3-11 mmol/L Blood Urea Nitrogen 8 7-18 mg/dl Creatinine 0.74 0.60-1.40 mg/dl Est Creatinine Clear Calc Drug Dose 103.6 ml/min Estimated GFR () 114.6 Estimated GFR (Non- 98.9 BUN/Creatinine Ratio 11.4 10-20 Random Glucose 92 70-99 mg/dl Calcium Level 9.1 8.5-10.1 mg/dl C-Reactive Protein 1.72 0-0.29 mg/dl Impression Assessment and Plan 60 y/o M w/Hx UC, spinal stenosis. Pt had a hip replacement 03/19 and then a revision at [facility] 05/21. After the revision the pt developed foot drop and progressive pain extending from his gluteal region down into his foot which he describes as severe and debilitating. The pt is having increasing difficulty mobilizing and sleeping and has not had relief with his current pain regimen. He was told to make an appt with a neurologist for an EMG but has not been able to do so as of yet. A LE doppler was obtained in the ER revealing a peroneal DVT. He has a history of spinal stenosis and received an epidural during surgery. He has not had recent imaging of his lower back. He denies fevers, SOB, palpitations. 1) Leg pain and foot drop - we have contacted Dr. Londono who has advised that he can see the pt early in the week for LE pain and an EMG due to foot drop. The pt will be held overnight to titrate his pain medications and obtain a lumbar MRI. 2) DVT - will start on BID Lovenox and monitor for bleeding as he has a history of UC - he may be able to be D/Cd with Xarelto or Apixaban and appropriate f/u. 3) UC - pt is normally on Humira but has held since February - does not describe recent related symptoms 4) Anemia - is slightly low - likely a post-op effect however we will check an iron level as again he is being placed on Lovenox. Full code - full dose Lovenox Total time for this admit including review of labs, meds, imaging - discussion with pt and ER attending - 33 min Level of Care Telemetry Resuscitation Status FULL RESUSCITATION VTE Prophylaxis VTE Risk Assessment Done? Y/N: Yes Risk Level: High Given or contraindicated: Enoxaparin (Lovenox)SQ
[2016-06-12 18:37] VITALS: Ht 175.3 cm; Wt 79.9 kg
[2016-06-12] MEDS ORDERED: GADAVIST IV PRN (20:00)
--- NOTE | 2016-06-12 20:28 | DIAGNOSTIC IMAGING REPORT ---
MRI LUMBAR SPINE COMBINATION CLINICAL HISTORY: New onset foot drop. History of recent epidural injection. TECHNIQUE: Sagittal and axial T1, T2 and STIR images were obtained. Imaging was performed before and after the administration of 8 cc of intravenous Gadavist. COMPARISON STUDY: Outside MRI the lumbar spine dated 02/14/2014 OBSERVATIONS: The vertebral bodies and posterior elements appear intact. There is no abnormal bony signal present to suggest a marrow replacement process. L1-2: There is a circumferential disc bulge with mild spinal canal narrowing. There is no significant foraminal narrowing L2-3: There is a circumferential disc bulge with moderate spinal stenosis. There is no significant foraminal narrowing L3-4: There is a circumferential disc bulge with mild spinal stenosis. There is minimal bilateral foraminal narrowing L4-5: There is a circumferential disc bulge and tiny central disc protrusion. There is facet joint arthropathy. There is moderate spinal stenosis. There is mild bilateral foraminal narrowing left greater than right. L5-S1: There is a minor circumferential disc bulge. There is no significant spinal or foraminal stenosis. The conus medullaris and cauda equina appear normal. There are no findings to indicate an epidural hematoma. There are no pathologically enhancing lesions. IMPRESSION: 1. Multilevel spondylitic change with multilevel spinal stenosis similar to the prior outside February 2014 study 2. No evidence of epidural hematoma. No evidence of epidural abscess. Electronically signed by: Fuad Godinez M.D. 06/12/2016 8:27 PM Dictated Date/Time: 06/12/2016 8:20 PM
[2016-06-12 20:30] VITALS: BP 145/90; PULSE 104; TEMP 36.5; O2SAT 97
[2016-06-12] MEDS: ENOXAPARIN 80 MG/0.8 ML SYR SQ SCH (21:15)
[2016-06-12] MEDS: OXYCODONE HCL 10 MG TABCR (OXYCONTIN) PO SCH (21:15)
[2016-06-12 23:02] VITALS: BP 129/83; PULSE 92; TEMP 36.8; O2SAT 96
[2016-06-13] VITALS (8 sets, daily range): BP systolic 117–136; BP diastolic 79–87; PULSE 87–99; TEMP 36.8–37.1; O2SAT 95–98
[2016-06-13 07:36] LABS: PARTIAL THROMBOPLASTIN RATIO 1.2; PROTHROMBIN TIME (PATIENT) 11.1 SECONDS (9.0-12.0)
[2016-06-13] MEDS: GABAPENTIN 300 MG CAP PO SCH ×3 (08:06→20:34)
[2016-06-13] MEDS: ENOXAPARIN 80 MG/0.8 ML SYR SQ SCH (08:06)
[2016-06-13] MEDS: OXYCODONE HCL 10 MG TABCR (OXYCONTIN) PO SCH ×2 (08:09→20:34)
[2016-06-13] MEDS ORDERED: XRL15 PO (12:11)
[2016-06-13] MEDS ORDERED: RIVA1TAB4 PO (12:11)
--- NOTE | 2016-06-13 12:15 | Discharge Instructions ---
Discharge Instructions Date of Service Jun 13, 2016. Admission Reason for Admission: Dvt (Deep Venous Thrombosis), Intractable Pain Discharge Discharge Diagnosis / Problem: DVT, intractable pain Discharge Goals Goal(s): Decrease discomfort, Improve function, Increase independence, Improve disease control, Diagnostic testing, Therapeutic intervention Activity Recommendations Activity Limitations: resume your previous activity Exercise/Sports Limitations: none Shower/Bathe: no limitations Driving or Machine Use: no limitations . Instructions / Follow-Up Instructions / Follow-Up Patient to be discharged home For clot in leg, will need to start on blood thinner xarelto: First take xarelto 15mg tablet twice a day for 21 days then take 20 mg tablet once a day for 63 days then stop Please activate xarelto card before obtaining prescription Please continue taking all other medications as directed If worsening leg pain, numbness, swelling, redness or fevers please report to ER Follow up with Dr. Londono in 1 weeks for EMG Please follow up with Dr. Negro in 1-2 weeks Current Hospital Diet Patient's current hospital diet: Regular Diet Discharge Diet Recommended Diet: Regular Diet Pending Studies Studies pending at discharge: no Medical Emergencies . Who to Call and When: Medical Emergencies: If at any time you feel your situation is an emergency, please call 911 immediately. . Non-Emergent Contact Non-Emergency issues call your: Primary Care Provider Call Non-Emergent contact if: you have a fever, your pain is unusual for you . . "Provider Documentation" section prepared by Paul Galindo. VTE Core Measure Inpt VTE Proph given/why not?: Enoxaparin (Lovenox)SQ
--- NOTE | 2016-06-13 13:53 | Progress Note ---
Subjective Date of Service: Jun 13, 2016. Subjective Pt evaluation today including: conversation w/ patient, physical exam, chart review, lab review, review of studies, review of inpatient medication list States pain improved in right leg Still numbness on outer portion of right lower leg and on top of foot Problem List Medical Problems: (1) Foot drop Status: Acute (2) Hip pain Status: Acute (3) Hip pain, right Status: Acute (4) Postoperative pain Status: Acute Review of Systems Constitutional: No chills, No fever ENT: No hearing loss, No unusual epistaxis Respiratory: No cough, No dyspnea on exertion, No shortness of breath, No sputum, No wheezing Cardiac: No chest pain, No orthopnea Abdomen: No diarrhea, No nausea, No pain, No vomiting Musculoskeletal: + muscle pain (lowe rright leg), No joint pain Male : No dysuria, No urinary frequency Neurologic: + numbness/tingling (lower right leg ), No memory loss Psychiatric: No anhedonism, No depression symptoms Skin: No itch, No rash Objective Vital Signs Date Time Temp Pulse Resp B/P Pulse Ox O2 Delivery O2 Flow Rate FiO2 06/13/16 12:17 36.9 99 18 98 Room Air 06/13/16 12:00 Room Air 06/13/16 11:35 36.9 99 18 122/80 98 Room Air 06/13/16 08:30 Room Air 06/13/16 07:43 37.0 88 18 136/87 97 Room Air 06/13/16 05:29 36.9 92 20 126/82 97 Room Air 06/13/16 04:00 Room Air 06/13/16 01:12 96 Room Air 06/13/16 01:05 96 Room Air 06/12/16 23:02 36.8 92 18 129/83 96 Room Air 06/12/16 20:30 36.5 104 18 145/90 97 Room Air 06/12/16 19:20 86 20 130/76 96 Room Air 06/12/16 18:37 Room Air 06/12/16 18:05 89 20 119/91 94 Room Air 06/12/16 16:34 87 20 131/82 96 Room Air 06/12/16 15:01 101 18 124/93 98 Room Air Physical Exam General Appearance: WD/WN, no apparent distress Neck: supple, no adenopathy Respiratory/Chest: chest non-tender, lungs clear, normal breath sounds Cardiovascular: no edema, no gallop, no JVD Abdomen: non tender, soft Neurologic/Psychiatric: alert, oriented x 3, + sensory deficit (lateral right lower leg and dorsum of foot extending into first and second toes ) Laboratory Results Last 24 Hours Test 06/12/16 14:53 06/13/16 06:50 White Blood Count 8.24 K/uL Red Blood Count 3.91 M/uL Hemoglobin 10.7 g/dL 10.5 g/dL Hematocrit 32.4 % Mean Corpuscular Volume 82.9 fL Mean Corpuscular Hemoglobin 27.4 pg Mean Corpuscular Hemoglobin Concent 33.0 g/dl Platelet Count 569 K/uL Mean Platelet Volume 8.4 fL Neutrophils (%) (Auto) 62.9 % Lymphocytes (%) (Auto) 27.9 % Monocytes (%) (Auto) 5.8 % Eosinophils (%) (Auto) 2.8 % Basophils (%) (Auto) 0.5 % Neutrophils # (Auto) 5.18 K/uL Lymphocytes # (Auto) 2.30 K/uL Monocytes # (Auto) 0.48 K/uL Eosinophils # (Auto) 0.23 K/uL Basophils # (Auto) 0.04 K/uL RDW Standard Deviation 42.3 fL RDW Coefficient of Variation 14.0 % Immature Granulocyte % (Auto) 0.1 % Immature Granulocyte # (Auto) 0.01 K/uL Erythrocyte Sedimentation Rate 80 mm/hr Sodium Level 142 mmol/L Potassium Level 3.9 mmol/L Chloride Level 105 mmol/L Carbon Dioxide Level 27 mmol/L Anion Gap 10.0 mmol/L Blood Urea Nitrogen 8 mg/dl Creatinine 0.74 mg/dl Est Creatinine Clear Calc Drug Dose 103.6 ml/min Estimated GFR () 114.6 Estimated GFR (Non- 98.9 BUN/Creatinine Ratio 11.4 Random Glucose 92 mg/dl Calcium Level 9.1 mg/dl Iron Level 21 mcg/dl Total Iron Binding Capacity 270 mcg/dl C-Reactive Protein 1.72 mg/dl Prothrombin Time 11.1 SECONDS Prothromb Time International Ratio 1.0 Activated Partial Thromboplast Time 31.8 SECONDS Partial Thromboplastin Ratio 1.2 Assessment and Plan 60 y/o M w/Hx UC, spinal stenosis. Pt had a hip replacement 03/19 and then a revision at [facility] 05/21. After the revision the pt developed foot drop and progressive pain extending from his gluteal region down into his foot which he describes as severe and debilitating. The pt is having increasing difficulty mobilizing and sleeping and has not had relief with his current pain regimen. He was told to make an appt with a neurologist for an EMG but has not been able to do so as of yet. A LE doppler was obtained in the ER revealing a peroneal DVT. He has a history of spinal stenosis and received an epidural during surgery. He has not had recent imaging of his lower back. He denies fevers, SOB, palpitations. 1) Leg pain and foot drop - we have contacted Dr. Londono who has advised that he can see the pt early in the week for LE pain and an EMG due to foot drop. The pt will be held overnight to titrate his pain medications. Lumbar MRI obtained and awaiting results. 2) DVT - Was initially on BID Lovenox and will now switch to xarelto on discharge for a period of 3 months. 3) UC - pt is normally on Humira but has held since February - does not describe recent related symptoms 4) Anemia - is slightly low - likely a post-op effect however we will check an iron level as again he is being placed on Lovenox.
[2016-06-13] MEDS: RIVAROXABAN TAB 15 MG TAB PO SCH (20:34)
[2016-06-13] MEDS: HYDROmorphone INJ 1 MG/ML SYR IV PRN (22:21)
[2016-06-13] MEDS: ONDANSETRON INJ 2 MG/ML 2 ML VIAL IV PRN (22:21)
[2016-06-14] MEDS: ACETAMINOPHEN 325 MG TAB PO PRN ×2 (00:34→05:07)
[2016-06-14] MEDS: HYDROmorphone INJ 1 MG/ML SYR IV PRN (02:06)
[2016-06-14] MEDS: ONDANSETRON INJ 2 MG/ML 2 ML VIAL IV PRN (02:06)
[2016-06-14 03:48] VITALS: BP 128/84; PULSE 83; TEMP 37; O2SAT 96
[2016-06-14 07:59] VITALS: BP 130/89; PULSE 93; TEMP 36.7; O2SAT 97
[2016-06-14] MEDS: RIVAROXABAN TAB 15 MG TAB PO SCH (08:53)
[2016-06-14] MEDS: GABAPENTIN 300 MG CAP PO SCH ×2 (08:53→13:58)
[2016-06-14] MEDS: OXYCODONE HCL 10 MG TABCR (OXYCONTIN) PO SCH (08:54)
--- NOTE | 2016-06-14 09:14 | Discharge Summary ---
Discharge Summary Date of Service Jun 14, 2016. Discharge Summary Admission Date: Jun 12, 2016 at 17:47 Discharge Date: Jun 14, 2016 Discharge Disposition: Home with services Principal Diagnosis: dvt Immunizations: Have You Had Influenza Vaccine: N/A History of Tetanus Vaccine?: Yes History of Pneumococcal: No History of Hepatitis B Vaccine: No Medication Reconciliation New Medications: Rivaroxaban (Xarelto) 20 Mg Tab 20 MG PO DAILY for 63 Days, #63 TABS To take AFTER finishing xarelto 15 mg twice a day for 21 days Rivaroxaban (Xarelto) 15 Mg Tab 15 MG PO BID for 21 Days, #42 TAB Continued Medications: Adalimumab (Humira Pen) 40 Mg/0.8 Ml Kit 1 DOSE SC Q2WKS ON HOLD Aspirin (Aspirin Ec) 81 Mg Tab 81 MG PO BID Cyclobenzaprine Hcl (Flexeril) 5 Mg Tab 5 MG PO TID PRN for Muscle Spasms, TAB PRN Docusate Sodium (Colace) 100 Mg Cap 100 MG PO BID, CAP Fentanyl (Duragesic) 50 Mcg Tdsy 50 MCG TD [id number], #2 PATCH Gabapentin (Gabapentin) 100 Mg Cap 300 MG PO TID pt is currently taking 300mg tid, will be moving up to 400mg tid Oxycodone HCl (Oxycodone HCl) 5 Mg Tab 5-10 MG PO Q4 PRN for Pain Hospital Course 60 y/o M w/Hx UC, spinal stenosis. Pt had a hip replacement 03/19 and then a revision at [facility] 05/21. After the revision the pt developed foot drop and progressive pain extending from his gluteal region down into his foot which he describes as severe and debilitating. The pt is having increasing difficulty mobilizing and sleeping and has not had relief with his current pain regimen. He was told to make an appt with a neurologist for an EMG but has not been able to do so as of yet. A LE doppler was obtained in the ER revealing a peroneal DVT. He has a history of spinal stenosis and received an epidural during surgery. He has not had recent imaging of his lower back. He denies fevers, SOB, palpitations. He was started on lovenox therapeutic dose and will be switched to Xarelto. Instructions written on medication dosages on discharge papers. Scripts transmitted. He was also instructed to follow-up with Dr. Londono for an EMG and subsequent therapeutic options. He does have outpatient rehab services currently. Otherwise, c/o sleep disturbance due to leg pain, numbness/tingling. He denies SOB, chest pain. Has been off Humira for a few months now with no active UC s/s. Vital Signs Date Time Temp Pulse Resp B/P Pulse Ox O2 Delivery O2 Flow Rate FiO2 06/14/16 07:59 36.7 93 18 130/89 97 06/14/16 04:00 Room Air NAD AOx3 anicteric, eomi, perrl s1 s2 rrr, no murmurs appreciated ctab no w/r/r abd soft, nt/nd +BS no LE edema 1. R peroneal DVT - provoked - will need anticoagulation for at least 3-6 months - Xarelto scripts transmitted - counselled on bleeding risks and events 2. R foot drop - post-op - follow up with Dr. Londono for EMG - PT/OT outpatient 3. Neuropathy - cont gabapentin, cont fentanyl 4. UC - stable at this time - off HUmira for now Total Time Spent: Less than 30 minutes This includes examination of the patient, discharge planning, medication reconciliation, and communication with other providers. Discharge Instructions Please refer to the electronic Patient Visit Report (Discharge Instructions) for additional information. Follow-Up Dr. Londono Additional Copies To Jack Negro M.D.
[2016-06-14] MEDS ORDERED: OXYSR10 PO (10:23)
[2016-06-14] MEDS ORDERED: DRGTP50 TD (10:24)
[2016-06-14 11:04] VITALS: BP 125/83; PULSE 88; TEMP 36.8; O2SAT 95
[2016-07-30] MEDS ORDERED: GABA1CAP5 PO (09:47)
[2016-12-30] MEDS ORDERED: CLR10 PO (09:12)
[2016-12-30] MEDS ORDERED: DOXY100C76 PO (09:13)
== END 2016-06-14 14:00 | disposition home health service (06) ==
LOC: ENRESERVDT → ENRESERVTM → EDBD 13:31 → C.EDB 13:32 → C.MED 17:47
PROVIDERS: ADMIT Internal Medicine; ATTEND Hospitalist
DX: I82.491 Acute embolism and thrombosis of other specified deep vein of right lower extremity (principal); M21.371 Foot drop, right foot; G89.18 Other acute postprocedural pain; G62.9 Polyneuropathy, unspecified; K51.90 Ulcerative colitis, unspecified, without complications; D64.9 Anemia, unspecified; Z90.49 Acquired absence of other specified parts of digestive tract; Z88.5 Allergy status to narcotic agent; Z79.82 Long term (current) use of aspirin; Z96.649 Presence of unspecified artificial hip joint

== ENCOUNTER → 2016-07-02 | Outpatient (CLI) | payer OTHER ==
[~2016-07-02] MED LIST changes: +BACL10TA PO; +CEPH500C PO; +CLR10 PO; +DOXY100C76 PO; +DRGTP50 TD; -FNTTP50 TD; +GABA1CAP5 PO; +MULT-506 PO; +OXYC-164 PO; +OXYSR10 PO; +RIVA1TAB4 PO; +XRL15 PO
[2016-07-02 15:08] LABS: BASO % 0.7 %; BASO ABS # 0.06 K/uL (0-0.2); COMPLETE YES; EOS % 7.4 %; HEMATOCRIT 36.4 % (42-52); IG% 0.1 %; LYMPH % 21.9 %; LYMPH ABS # 1.87 K/uL (1.2-3.4); MEAN CELL VOLUME 82.2 fL (80-100); MEAN CORPUSCULAR HEMOGLOBIN 26.4 pg (25-34); MEAN CORPUSCULAR HGB CONC 32.1 g/dl (32-36); MEAN PLATELET VOLUME 9.7 fL (7.4-10.4); MONO % 8.9 %; PLATELET COUNT 425 K/uL (130-400); RED BLOOD COUNT 4.43 M/uL (4.7-6.1); WHITE BLOOD COUNT 8.54 K/uL (4.8-10.8)
[2016-07-02 15:24] LABS: ALT/SGPT 24 U/L (12-78); AST/SGOT 21 U/L (15-37); BLOOD UREA NITROGEN 16 mg/dl (7-18); BUN/CREATININE RATIO 20.6 (10-20); CALCIUM 9.1 mg/dl (8.5-10.1); CARBON DIOXIDE 30 mmol/L (21-32); CHLORIDE 106 mmol/L (98-107); CREATININE 0.79 mg/dl (0.60-1.40); GLUCOSE 92 mg/dl (70-99); POTASSIUM 4.2 mmol/L (3.5-5.1); SODIUM 141 mmol/L (136-145)
[2016-07-02 15:27] LABS: ALB/GLOB RATIO 0.8 (0.9-2); ALKALINE PHOSPHATASE 128 U/L (45-117)
[2016-07-02 15:31] LABS: ALKALINE PHOSPHATASE 130 U/L (45-117); ALT/SGPT 25 U/L (12-78); AST/SGOT 21 U/L (15-37)
== END | disposition home or self-care (01) ==
LOC: C.LABBC 10:24
PROVIDERS: ATTEND Anesthesiology
DX: Z51.81 Encounter for therapeutic drug level monitoring (principal); Z79.899 Other long term (current) drug therapy; G57.21 Lesion of femoral nerve, right lower limb

== ENCOUNTER → 2016-07-19 | Outpatient (CLI) | payer OTHER ==
[~2016-07-19] MED LIST changes: -ADAL40KI SC
--- NOTE | 2016-07-20 07:39 | DIAGNOSTIC IMAGING REPORT ---
CT SCAN OF THE ABDOMEN AND PELVIS WITH IV CONTRAST CLINICAL HISTORY: Neuropathy of the right sciatic nerve. COMPARISON STUDY: Abdominal CT dated 04/17/2014. Abdominal MRI dated 02/04/2015. TECHNIQUE: Following the IV administration of 92 cc of Optiray 320, CT scan of the abdomen and pelvis is performed from the lung bases to the proximal femora. Images are reviewed in the axial, sagittal, and coronal planes. IV contrast was administered without complication. Automated dose control exposure was utilized. CT DOSE: 684.10 mGycm FINDINGS: Lung bases: The heart is normal in size and without pericardial effusion. The lung bases are clear. There is a tiny hiatal hernia. Liver: The contrast-enhanced liver is normal in size, contour, and attenuation. There is no intrahepatic biliary ductal dilatation. The hepatic veins and portal veins are patent. Gallbladder: Unremarkable. Spleen: Normal in size and attenuation. Pancreas: Unremarkable. Adrenal glands: An 8 mm ovoid low-attenuation lesion in the pancreatic body is unchanged from 2015 and likely represents a small sidebranch IPMN. Pancreas is otherwise normal as imaged. Kidneys: The contrast enhanced kidneys are normal in size and without hydronephrosis. The kidneys enhance symmetrically. There are bilateral nonobstructing renal calculi. The largest is in the left upper pole and measures 5 mm. Abdominal vasculature: The abdominal aorta is normal in course and caliber. Bowel: The small bowel and colon are normal in course and caliber. There is moderate colonic fecal retention. The appendix is not identified and reported surgically absent. Peritoneum: There is no intraperitoneal free air or abdominal ascites. Lymphadenopathy: None. Pelvic viscera: Evaluation of the pelvis is degraded by streak artifact from a right hip arthroplasty. The bladder, prostate, and seminal vesicles are normal as imaged. Surgical clips are seen along the spermatic cord bilaterally. An intramuscular lipoma versus chronic muscular injury is noted in the left gluteus boone muscle on image #[id number]. Skeletal structures: No lytic or blastic lesions are seen. There has been right hip arthroplasty revision as compared to 04/17/2014. A secondary acetabular cup component is seen along the posterior/superior margin of the arthroplasty. Bursal fluid is noted around the arthroplasty. There is bony overgrowth and reactive change seen along the medial acetabulum. There is also thickening and edema identified within the right piriformis muscle which represents a change from 04/17/2014. This may impinge on the sciatic nerve in the right sciatic foramen. There is bony irregularity seen along the anterior right acetabulum, which may represent a previous bone graft donor site. IMPRESSION: 1. There are no acute infectious or inflammatory findings in the abdomen or pelvis. 2. There has been interval right hip arthroplasty revision as compared to 04/17/2014. An accessory acetabular cup component has been placed along the posterior/superior margin of the arthroplasty, and there is reactive change within the adjacent right piriformis muscle which appears thickened and irregular. This is new from previous, and may impinge on the sciatic nerve in the sciatic canal. Electronically signed by: Mann Cantu M.D. 07/19/2016 4:02 PM Dictated Date/Time: 07/19/2016 3:22 PM
== END | disposition home or self-care (01) ==
LOC: C.CTS 12:47
PROVIDERS: ATTEND Physician Assistant
DX: G57.01 Lesion of sciatic nerve, right lower limb (principal); G57.21 Lesion of femoral nerve, right lower limb; Z96.641 Presence of right artificial hip joint

== ENCOUNTER → 2016-09-01 | Outpatient (CLI) | payer OTHER ==
[~2016-09-01] MED LIST changes: -XRL15 PO
[2016-09-01 11:32] LABS: BLOOD UREA NITROGEN 18 mg/dl (7-18); CREATININE 0.87 mg/dl (0.60-1.40)
== END | disposition home or self-care (01) ==
LOC: C.LAB1850 10:17
PROVIDERS: ATTEND Physician Assistant
DX: E78.5 Hyperlipidemia, unspecified (principal)

== ENCOUNTER → 2016-09-06 | Outpatient (CLI) | payer OTHER ==
[2016-09-06 09:52] LABS: URINE APPEARANCE CLOUDY (CLEAR); URINE BILIRUBIN NEG (NEG); URINE COLOR ORANGE; URINE EPITHELIAL CELL AUTO 0-5 /lpf (0-5); URINE NITRITE NEG (NEG); UROBILINOGEN NEG (NEG)
[2016-09-06 09:54] LABS: MANUAL MICROSCOPIC REQUIRED? NO; REVIEW REQ? NO
== END | disposition home or self-care (01) ==
LOC: C.LAB1850 07:58
PROVIDERS: ATTEND Internal Medicine
DX: R31.9 Hematuria, unspecified (principal)

== ENCOUNTER → 2016-09-15 | Outpatient (CLI) | payer OTHER ==
--- NOTE | 2016-09-15 09:11 | DIAGNOSTIC IMAGING REPORT ---
KUB HISTORY: R31.9 [id number] COMPARISON: Abdomen and pelvis CT 07/19/2016. FINDINGS: The bowel gas pattern is unremarkable. There are no dilated loops of small bowel to suggest an obstruction. No right renal calculi. Stable 4 mm linear stone within the upper pole of the left kidney.. No ureteral calculi. Calcifications in the deep pelvis likely represent phleboliths. These remain stable. No pneumoperitoneum or pneumatosis. Interval right hip arthroplasty revision. IMPRESSION: Stable left-sided nephrolithiasis. Electronically signed by: Jose Hernandez M.D. 09/15/2016 9:10 AM Dictated Date/Time: 09/15/2016 9:08 AM
== END | disposition home or self-care (01) ==
LOC: C.RAD1850 08:56
PROVIDERS: ATTEND Internal Medicine
DX: R31.9 Hematuria, unspecified (principal)

== ENCOUNTER → 2016-10-18 | Outpatient (CLI) | payer OTHER ==
[~2016-10-18] MED LIST changes: -BACL10TA PO; -CEPH500C PO; -MULT-506 PO; -OXYC-164 PO
[2016-10-20 16:39] LABS: REFERENCE QUEST TEST REPORT
== END | disposition home or self-care (01) ==
LOC: C.LAB1850 14:50
PROVIDERS: ATTEND Physician Assistant Medical
DX: Z96.649 Presence of unspecified artificial hip joint (principal)

== ENCOUNTER → 2016-10-26 | Outpatient (CLI) | payer OTHER ==
--- NOTE | 2016-10-26 17:17 | DIAGNOSTIC IMAGING REPORT ---
ULTRASOUND RIGHT LOWER EXTREMITY VENOUS CLINICAL HISTORY: Right leg pain and swelling. COMPARISON STUDY: Right lower extremity venous ultrasound dated 01/30/2009. TECHNIQUE: Real-time, grayscale, and color Doppler sonography of the deep veins of the right lower extremity was performed from the inguinal crease to the calf. Compression and augmentation were utilized. FINDINGS: There is no sonographic evidence of deep venous thrombosis identified in the right lower extremity. The common femoral, superficial femoral, and popliteal veins are patent and normally compressible. The greater saphenous vein and the profunda femoris vein at the junction with the common femoral vein are clear. The visualized calf veins are patent. IMPRESSION: There is no sonographic evidence of deep venous thrombosis identified in the right lower extremity. Electronically signed by: Mann Cantu M.D. 10/26/2016 5:15 PM Dictated Date/Time: 10/26/2016 5:15 PM
--- NOTE | 2016-10-26 17:22 | DIAGNOSTIC IMAGING REPORT ---
KUB CLINICAL HISTORY: 61 years-old Male presenting with nephrolithiasis. TECHNIQUE: Single supine view of the abdomen was obtained. COMPARISON: 09/15/[address] from 07/19/2016. FINDINGS: Previously noted calculus at the upper pole of the left kidney again noted. Additional previously noted subtle punctate density in the right kidney is not appreciated on this radiograph. Phleboliths noted. Nonobstructive bowel gas pattern. Total right hip arthroplasty with acetabula protrusio changes as on prior exam. Heterotopic ossification along the superior aspect of the right hip joint with possible bridging. IMPRESSION: 1. Left upper pole calculus unchanged in position since prior CT. Electronically signed by: Patrice Sanchez M.D. 10/26/2016 5:21 PM Dictated Date/Time: 10/26/2016 5:18 PM
== END | disposition home or self-care (01) ==
LOC: C.ULTR 16:18
PROVIDERS: ATTEND Internal Medicine
DX: N20.0 Calculus of kidney (principal); Z86.718 Personal history of other venous thrombosis and embolism

== ENCOUNTER → 2016-10-29 | Outpatient (CLI) | payer OTHER ==
--- NOTE | 2016-10-29 12:56 | DIAGNOSTIC IMAGING REPORT ---
TWO VIEW CHEST CLINICAL HISTORY: Preoperative examination. FINDINGS: PA and lateral chest radiographs are compared to study dated 04/05/2014. The cardiomediastinal silhouette is unremarkable. The lungs and pleural spaces are clear. There is no pneumothorax. The bony thorax appears intact. IMPRESSION: No active disease in the chest. Electronically signed by: Mann Cantu M.D. 10/29/2016 12:55 PM Dictated Date/Time: 10/29/2016 12:55 PM
[2016-10-29 13:40] LABS: BASO % 0.5 %; BASO ABS # 0.05 K/uL (0-0.2); COMPLETE YES; EOS % 6.4 %; HEMATOCRIT 41.9 % (42-52); IG% 0.3 %; LYMPH % 23.7 %; LYMPH ABS # 2.63 K/uL (1.2-3.4); MEAN CELL VOLUME 85.3 fL (80-100); MEAN CORPUSCULAR HEMOGLOBIN 28.5 pg (25-34); MEAN CORPUSCULAR HGB CONC 33.4 g/dl (32-36); MEAN PLATELET VOLUME 9.8 fL (7.4-10.4); MONO % 7.2 %; NEUT % 61.9 %; PLATELET COUNT 311 K/uL (130-400); RED BLOOD COUNT 4.91 M/uL (4.7-6.1); WHITE BLOOD COUNT 11.11 K/uL (4.8-10.8)
[2016-10-29 13:52] LABS: BLOOD UREA NITROGEN 17 mg/dl (7-18); BUN/CREATININE RATIO 19.1 (10-20); CALCIUM 9.3 mg/dl (8.5-10.1); CARBON DIOXIDE 30 mmol/L (21-32); CHLORIDE 104 mmol/L (98-107); CREATININE 0.89 mg/dl (0.60-1.40); GLUCOSE 91 mg/dl (70-99); POTASSIUM 4.3 mmol/L (3.5-5.1); SODIUM 141 mmol/L (136-145)
== END | disposition home or self-care (01) ==
LOC: C.LAB1850 12:31
PROVIDERS: ATTEND Internal Medicine
DX: G95.9 Disease of spinal cord, unspecified (principal); M48.02 Spinal stenosis, cervical region

== ENCOUNTER → 2016-12-08 | Outpatient (CLI) | payer OTHER | END | disposition home or self-care (01) | LOC: C.PATHSPEC 10:33 | PROVIDERS: ATTEND Urology | DX: R31.9 Hematuria, unspecified (principal) ==

== ENCOUNTER → 2016-12-13 | Outpatient (CLI) | payer OTHER ==
--- NOTE | 2016-12-13 14:57 | DIAGNOSTIC IMAGING REPORT ---
C-SPINE ROUTINE 4 OR 5 VIEWS CLINICAL HISTORY: 61 years-old Male presenting with CERVICAL STENOSIS, pain in neck, recent surgery. TECHNIQUE: Lateral, bilateral oblique, frontal, and open-mouth odontoid views of the cervical spine were obtained. COMPARISON: Correlation made to MR from 09/01/2016. FINDINGS: Straightening of normal cervical lordosis. Interval bilateral posterior transpedicular screw and juan m fixation of C4-C6 with a bridge over C7 to the T1 vertebral body. No apparent hardware complication. Mild vertebral body height loss of C5-C7, unchanged, with associated intervertebral disc height loss of C5-6 and C6-7. Assessment for osseous neural foraminal narrowing is limited on radiography and the presence of surgical hardware. No radiographic evidence of acute fracture or subluxation. Normal predental interval. Lateral masses of C1 articulate normally with C2. No prevertebral soft tissue swelling. IMPRESSION: Postsurgical changes of posterior fusion of C4-T1, bridging C7. Evaluation for osseous neural foraminal narrowing is limited on radiography in the setting of the surgical hardware. No radiographic evidence of acute or osseous injury or hardware convocation. Electronically signed by: Patrice Sanchez M.D. 12/13/2016 2:56 PM Dictated Date/Time: 12/13/2016 2:53 PM
== END | disposition home or self-care (01) ==
LOC: C.RAD1850 13:57
PROVIDERS: ATTEND Neurological Surgery
DX: M48.02 Spinal stenosis, cervical region (principal)

== ENCOUNTER → 2017-03-02 | Outpatient (CLI) | payer OTHER ==
[~2017-03-02] MED LIST changes: -ASPI81TA28 PO; +BACL10TA PO; +CEPH500C PO; -CLR10 PO; -DOCU-94 PO; -DOXY100C76 PO; -DRGTP50 TD; +MULT-506 PO; -NRN100 PO; +OXYC-164 PO; -OXYSR10 PO; -RIVA1TAB4 PO
[2017-03-02 10:09] LABS: HEMATOCRIT 44.2 % (42-52); MEAN CORPUSCULAR HEMOGLOBIN 28.6 pg (25-34); MEAN CORPUSCULAR HGB CONC 33.3 g/dl (32-36); MEAN PLATELET VOLUME 9.9 fL (7.4-10.4); PLATELET COUNT 272 K/uL (130-400); RED BLOOD COUNT 5.14 M/uL (4.7-6.1); WHITE BLOOD COUNT 8.08 K/uL (4.8-10.8)
[2017-03-02 10:44] LABS: ALT/SGPT 33 U/L (12-78); AST/SGOT 15 U/L (15-37); BLOOD UREA NITROGEN 14 mg/dl (7-18); BUN/CREATININE RATIO 17.5 (10-20); CALCIUM 8.6 mg/dl (8.5-10.1); CARBON DIOXIDE 28 mmol/L (21-32); CHLORIDE 106 mmol/L (98-107); CREATININE 0.81 mg/dl (0.60-1.40); GLUCOSE 95 mg/dl (70-99); POTASSIUM 3.9 mmol/L (3.5-5.1); SODIUM 139 mmol/L (136-145)
[2017-03-02 10:49] LABS: ALB/GLOB RATIO 0.9 (0.9-2); ALKALINE PHOSPHATASE 92 U/L (45-117); CHOLESTEROL 191 mg/dl (0-200); CHOLESTEROL/HDL RATIO 2.7; HDL CHOLESTEROL 70 mg/dl; LDL CHOLESTEROL CALCULATED 108 mg/dl; PROSTATE SPECIFIC ANTIGEN 0.321 ng/ml (0.000-4.000); TRIGLYCERIDES 65 mg/dl (0-150); VERY LOW DENSITY LIPOPROT CALC 13 mg/dl
== END | disposition home or self-care (01) ==
LOC: C.LAB1850 09:02
PROVIDERS: ATTEND Internal Medicine
DX: R31.9 Hematuria, unspecified (principal); K51.20 Ulcerative (chronic) proctitis without complications; Z13.220 Encounter for screening for lipoid disorders

== ENCOUNTER → 2017-03-08 | Outpatient (CLI) | payer OTHER ==
[~2017-03-08] MED LIST changes: -CEPH500C PO
--- NOTE | 2017-03-08 11:24 | DIAGNOSTIC IMAGING REPORT ---
KUB CLINICAL HISTORY: Nephrolithiasis. COMPARISON STUDY: KUB October 26, [address] of the abdomen and pelvis July 19, 2016. FINDINGS: Pelvic calcifications reflect phleboliths. No ureteral calculi are identified. A 4 mm left upper pole calculus is unchanged. Right hip arthroplasty is noted. IMPRESSION: 1. No change in a 4 mm left renal calculus. 2. No ureteral calculi identified. Electronically signed by: Hector Vargas M.D. 03/08/2017 11:22 AM Dictated Date/Time: 03/08/2017 11:19 AM
--- NOTE | 2017-03-08 11:35 | DIAGNOSTIC IMAGING REPORT ---
CERVICAL SPINE 2 OR 3 VIEWS HISTORY: 61 years-old Male G95.9 chronic neck pain with prior neck surgery. COMPARISON: Cervical spine radiographs 12/13/2016 TECHNIQUE: 3 views of the cervical spine FINDINGS: There is straightening of the normal cervical lordosis. Posterior juan m and screw fusion hardware seen extending from C4-T1. Hardware appears intact without evidence of fracture or loosening. Severe intervertebral disc space narrowing is seen at C5-C6 and C6-C7. Moderate facet arthrosis in at least moderate endplate spurring is also seen at these levels. No acute fracture or dislocation is identified. No prevertebral soft tissue swelling. Imaged lung apices are clear. IMPRESSION: 1. No acute fracture or subluxation. 2. Posterior juan m and screw fusion of the cervical spine extends from C4-T1. 3. Severe intervertebral disc space narrowing with moderate facet arthrosis at C5-C6 and C6-C7. The above report was generated using voice recognition software. It may contain grammatical, syntax or spelling errors. Electronically signed by: Valdez Choudhury M.D. 03/08/2017 11:33 AM Dictated Date/Time: 03/08/2017 11:30 AM
== END | disposition home or self-care (01) ==
LOC: C.RAD1850 10:29
PROVIDERS: ATTEND Urology
DX: N20.0 Calculus of kidney (principal); M43.22 Fusion of spine, cervical region; M50.322 Other cervical disc degeneration at C5-C6 level; M50.323 Other cervical disc degeneration at C6-C7 level

== ENCOUNTER → 2017-03-09 | Outpatient (CLI) | payer OTHER | END | disposition home or self-care (01) | LOC: C.LABSPEC 17:00 | PROVIDERS: ATTEND Urology | DX: R31.9 Hematuria, unspecified (principal) ==

== ENCOUNTER → 2017-04-21 | Outpatient (CLI) | payer OTHER ==
[~2017-04-21] MED LIST changes: +AMPH1TAB58 PO; +OXYC-57 PO
== END | disposition home or self-care (01) ==
LOC: C.LAB1850 15:27
PROVIDERS: ATTEND Psychiatry & Neurology Psychiatry
DX: F90.0 Attention-deficit hyperactivity disorder, predominantly inattentive type (principal)

== ENCOUNTER → 2017-05-05 | Day surgery (SDC) | payer OTHER ==
[2017-02-10 07:53] VITALS: BMI 26.0
[2017-04-21 11:07] VITALS: BMI 26.0
[~2017-05-05] VITALS: Ht 175.3 cm; Wt 81.8 kg
[~2017-05-05] MED LIST changes: -BACL10TA PO; -CYCL5TAB PO; +LIDOCAINE HCL 2% 2 ML VIAL (20MG/ML) ONE; -OXYC-609 PO; +PHENYLEPHRINE 100MCG/ML 5ML SYR ONE; +PROPOFOL IV EMULSION 10 MG/ML 20 ML VIAL IV ONE
[2017-05-05 14:32] VITALS: Ht 175.3 cm; Wt 81.8 kg
--- NOTE | 2017-05-05 14:32 | Endo History and Physical ---
History & Physical Date of Service: May 05, 2017. Chief Complaint: Ulcerative proctitis Referring Physician: Dr. 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 Past Medical History Thrombophlebitis Past Surgical History Hx Cardiac Surgery: No Hx Internal Defibrillator: No Hx Pacemaker: No Hx Abdominal Surgery: Yes (APPY) Hx of Implantable Prosthesis: No Hx Post-Op Nausea and Vomiting: No Hx Cancer Surgery: No Hx Thoracic Surgery: No Hx Orthopedic: Yes (C4-T1 LAMINECTOMY AND FUSION, RT TAYLOR/REVISION) Hx Urinary Tract Surgery: No Family History Colon CA Social History Smoking Status: Never Smoker Hx Substance Use: No Hx Alcohol Use: Yes (~4 DRINKS/WEEK) Allergies Coded Allergies: Hydromorphone (Verified Allergy, Unknown, MUSCLE SPASMS, 04/29/17) Morphine (Verified Adverse Reaction, Unknown, "NAUSEA", 04/29/17) pt said was given morphine last time here with no reaction, confirms hydromorphone allergy - PT STATES OKAY IF GIVEN ANTI-NAUSEA MEDICATON PRIOR TO MORPHINE ADMINISTRATION Current Medications Reported Home Medications Medications Dose Route/Sig Max Daily Dose Days Date Category Dose Instructions Percocet 5MG/325MG (Oxycodone/Acetaminophen) Tab 1 Tablet PO Q6H PRN 04/21/17 Reported PAIN Adderall 5MG (Amphetamine-Dextroamphetamine 5MG) 1 Tab Tab 5 Mg PO QAM 04/21/17 Reported Multivitamin (Multivitamins) Tab 1 Tab PO DAILY 02/10/17 Reported Oxycodone Hcl 10 Mg Tab 1 Tab PO BID 02/10/17 Reported Neurontin (Gabapentin) 400 Mg Cap 400 Mg PO TID 07/30/16 Reported Vital Signs Weight (Kilograms): 81.82 Height (Feet): 5 Height (Inches): 9 Physical Exam General Appearance: WD/WN, no apparent distress Respiratory/Chest: Auscultation: breath sounds normal Cardiovascular: Heart Auscultation: RRR Abdomen: Bowel Sounds: normal Inspection & Palpation: soft, non-distended, no tenderness, guarding & rebound Assessment and Plan Assessment: 61 yo CM who presents for 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 Plan: Proceed with colonoscopy.
--- NOTE | 2017-05-05 15:38 | Discharge Instructions ---
Endoscopy Patient Instructions Date / Procedure(s) Performed May 05, 2017. Colonoscopy Allergy Information Coded Allergies: Hydromorphone (Verified Allergy, Unknown, MUSCLE SPASMS, 05/05/17) Morphine (Verified Adverse Reaction, Unknown, "NAUSEA", 05/05/17) pt said was given morphine last time here with no reaction, confirms hydromorphone allergy - PT STATES OKAY IF GIVEN ANTI-NAUSEA MEDICATON PRIOR TO MORPHINE ADMINISTRATION Discharge Date / Findings May 05, 2017. Ulcerative proctitis s/p biopsies Medication Instructions OK to resume all medications today as prescribed Reported Home Medications Medications Dose Route/Sig Max Daily Dose Days Date Category Dose Instructions Percocet 5MG/325MG (Oxycodone/Acetaminophen) Tab 1 Tablet PO Q6H PRN 04/21/17 Reported PAIN Adderall 5MG (Amphetamine-Dextroamphetamine 5MG) 1 Tab Tab 5 Mg PO QAM 04/21/17 Reported Multivitamin (Multivitamins) Tab 1 Tab PO DAILY 02/10/17 Reported Oxycodone Hcl 10 Mg Tab 1 Tab PO BID 02/10/17 Reported Neurontin (Gabapentin) 400 Mg Cap 400 Mg PO TID 07/30/16 Reported Provider Instructions Activity Restrictions - No exercising or heavy lifting for 24 hours. - Do not drink alcohol the day of the procedure. - Do not drive a car or operate machinery until the day after the procedure. - Do not make any important decisions or sign important papers in 24 hours after the procedure. Following Day: - Return to full activity which may include returning to work/school. Diet Start your diet with liquids and light foods (jello, soup, juice, toast). Then eat your usual diet if not nauseated. Treatment For Common After Affects For mild abdominal pain, bloating, or excessive gas: - Rest - Eat lightly - Lie on right side Follow-Up Information Follow-up with DR. CHENG as scheduled Anesthesia Information What You Should Know You have had a procedure that required some medicine to reduce anxiety and discomfort. This treatment is called moderate sedation. After receiving the treatment, you may be sleepy, but you will be able to breathe on your own. The effects of the treatment may last for several hours. Follow these instructions along with Activity/Diet recommendations noted above: * Do NOT do anything where dizziness or clumsiness would be dangerous. * Rest quietly at home today, then you can be up and about tomorrow. * Have a responsible person stay with you the rest of today. * You may have had an I.V. today. If so, you may take the dressing off later today. Recommendations Call your doctor if: * Trouble breathing * Continuous vomiting for more than 24 hours * Temperature above 101 degrees * Severe abdominal pain or bloating * Pain not relieved by pain medicine ordered * There is increased drainage or redness from any incision * A large amount of rectal bleeding greater than 2-3 tablespoons. (If you had a polyp/s removed or have hemorrhoids, a small amount of blood - from the rectum is to be expected.) * You have any unanswered questions or concerns. IN THE EVENT OF A SERIOUS EMERGENCY, GO TO THE NEAREST EMERGENCY ROOM Your discharge instructions were prepared by provider Russ Barbour. Patient Instructions Signature Page Paulo Ruiz Patient (or Guardian) Signature/Date: I have read and understand the instructions given to me by my caregivers. Caregiver/RN/Doctor Signature/Date: The above-named patient and/or guardian has received patient instructions on this date. + Original Patient Signature Page (only) stays with chart. Please make copy for patient.
--- NOTE | 2017-05-05 15:44 | GI REPORT ---
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 Estimated Blood Loss: Estimated blood loss: none. Procedure: Pre-Anesthesia Assessment: - Prior to the procedure, a History and Physical was performed, and patient medications and allergies were reviewed. The patient's tolerance of previous anesthesia was also reviewed. The risks and benefits of the procedure and the sedation options and risks were discussed with the patient. All questions were answered, and informed consent was obtained. Prior Anticoagulants: The patient has taken no previous anticoagulant or antiplatelet agents. ASA Grade Assessment: II - A patient with mild systemic disease. After reviewing the risks and benefits, the patient was deemed in satisfactory condition to undergo the procedure. After I obtained informed consent, the scope was passed under direct vision. Throughout the procedure, the patient's blood pressure, pulse, and oxygen saturations were monitored continuously. The scope was introduced through the anus and advanced to the terminal ileum. The colonoscopy was performed without difficulty. The patient tolerated the procedure well. The quality of the bowel preparation was good. The terminal ileum, ileocecal valve, appendiceal orifice, and rectum were photographed. Findings: The perianal and digital rectal examinations were normal. A localized area of mildly erythematous and aexgxwsz-rvujwdb-mvymbamyj mucosa was found in the rectum. Biopsies were taken with a cold forceps for histology. Impression: - Erythematous and ftuxxqcq-vztmayr-xmqywahpl mucosa in the rectum. Biopsied. Recommendation: - Resume previous diet. - Continue present medications. - Repeat colonoscopy for surveillance based on pathology results. - Return to primary care physician as previously scheduled. Russ Barbour, DO 05/05/2017 3:43:45 PM This report has been signed electronically. Note Initiated On: 05/05/2017 2:56 PM I attest to the content of the Intraoperative Record and orders documented therein, exceptions below
[2017-05-05 16:46] VITALS: BP 97/68; PULSE 67; O2SAT 100
--- NOTE | 2017-05-05 16:51 | Anesthesiology Progress Note ---
Anesthesia Post Op Note Date & Time May 05, 2017 at 16:51 Vital Signs Pain Intensity: 0 Vital Signs Past 12 Hours Date Time Temp Pulse Resp B/P (MAP) Pulse Ox O2 Delivery O2 Flow Rate FiO2 05/05/17 16:46 67 18 97/68 (78) 100 Room Air 05/05/17 16:22 65 18 101/66 (78) 99 Room Air 05/05/17 16:17 73 18 96/55 (69) 98 Room Air 05/05/17 16:12 51 18 111/67 (82) 98 Room Air 05/05/17 16:08 70 18 87/56 (66) 96 Room Air 05/05/17 16:00 71 16 87/48 (61) 96 Room Air 05/05/17 15:45 54 16 113/61 (78) 96 Room Air 05/05/17 14:48 36.7 76 18 117/70 (86) 99 Room Air Notes Mental Status: alert / awake / arousable, participated in evaluation Pt Amnestic to Procedure: Yes Nausea / Vomiting: adequately controlled Pain: adequately controlled Airway Patency, RR, SpO2: stable & adequate BP & HR: stable & adequate Hydration State: stable & adequate Anesthetic Complications: no major complications apparent
== END | disposition home or self-care (01) ==
LOC: C.GI 14:16
PROVIDERS: ATTEND Internal Medicine
DX: K51.20 Ulcerative (chronic) proctitis without complications (principal); Z79.899 Other long term (current) drug therapy

== ENCOUNTER → 2017-06-01 | Day surgery (SDC) | payer SELFPAY ==
[2017-04-29 13:31] VITALS: BMI 26.0
[2017-05-12 11:46] VITALS: Ht 175.3 cm; Wt 81.8 kg
[~2017-06-01] VITALS: Ht 175.3 cm; Wt 81.8 kg
[~2017-06-01] MED LIST changes: +AcetaZOLAMIDE 250 MG TAB PO SCH; +BETAXOLOL HCL 0.25% OP SUSP PER DROP CHARGE OPR SCH; +CYCLOPENTOLATE HCL 1% OP SOLN PER DROP CHARGE OPR SCH; +GABA-1220 PO; -GABA1CAP5 PO; +LACTATED RINGER'S 1000ML 500 ML IV SCH; +LIDOCAINE 4% OP SOLN DROP CHARGE OPR SCH; -LIDOCAINE HCL 2% 2 ML VIAL (20MG/ML) ONE; +MOXIFLOXACIN OPH SOLN PER DROP CHARGE OPR SCH; -PHENYLEPHRINE 100MCG/ML 5ML SYR ONE; +PHENYLEPHRINE HCL 2.5% OP SOLN PER DROP CHARGE OPR SCH; +PROPARACAINE 0.5% OP SOLN PER DROP CHARGE OPR SCH; -PROPOFOL IV EMULSION 10 MG/ML 20 ML VIAL IV ONE; +TROPICAMIDE 1% OP SOLN PER DROP CHARGE OPR SCH
== END | disposition home or self-care (01) ==
LOC: EDSTATUS 07:30 → C.PAT 15:58
PROVIDERS: ATTEND Specialist
DX: H25.11 Age-related nuclear cataract, right eye (principal); Z53.09 Procedure and treatment not carried out because of other contraindication

== ENCOUNTER → 2017-06-27 | Outpatient (CLI) | payer OTHER ==
[~2017-06-27] MED LIST changes: -AcetaZOLAMIDE 250 MG TAB PO SCH; -BETAXOLOL HCL 0.25% OP SUSP PER DROP CHARGE OPR SCH; -CYCLOPENTOLATE HCL 1% OP SOLN PER DROP CHARGE OPR SCH; -LACTATED RINGER'S 1000ML 500 ML IV SCH; -LIDOCAINE 4% OP SOLN DROP CHARGE OPR SCH; -MOXIFLOXACIN OPH SOLN PER DROP CHARGE OPR SCH; -PHENYLEPHRINE HCL 2.5% OP SOLN PER DROP CHARGE OPR SCH; -PROPARACAINE 0.5% OP SOLN PER DROP CHARGE OPR SCH; -TROPICAMIDE 1% OP SOLN PER DROP CHARGE OPR SCH
--- NOTE | 2017-06-27 10:48 | DIAGNOSTIC IMAGING REPORT ---
PELVIS 1 OR 2 VIEW ROUTINE CLINICAL HISTORY: Femoral neuropathy of right lower extremity. COMPARISON STUDY: Pelvis radiograph June 05, [address] of the abdomen and pelvis July 19, 2016. FINDINGS: A revision right hip arthroplasty is noted. Sclerosis with bone formation along the medial wall the right acetabulum is unchanged per no fracture or suspicious lesion is noted. There is heterotopic ossification. This is similar to prior exam. Sacroiliac joints and symphysis pubis are intact. IMPRESSION: 1. Status post total right hip arthroplasty with revision. Stable postoperative appearance since exam of July 19, 2016. 2. No acute fracture within the pelvis or hips. Electronically signed by: Hector Vargas M.D. 06/27/2017 10:46 AM Dictated Date/Time: 06/27/2017 10:45 AM
--- NOTE | 2017-06-27 10:49 | DIAGNOSTIC IMAGING REPORT ---
L-SPINE MIN 4 VIEWS ROUTINE CLINICAL HISTORY: Spinal stenosis. COMPARISON: Lumbar spinal radiographs October 18, 2013 and MRI of the lumbar spine February 14, 2014. FINDINGS: No acute lumbar spine fracture is noted. There is marked disc space narrowing with osteophytosis and vacuum disc phenomenon at L2-L3. There is moderate disc space narrowing at L1-L2. There is moderate multilevel facet arthrosis. IMPRESSION: 1. No acute lumbar spine fracture. 2. Moderate to severe multilevel degenerative disc disease and facet arthrosis of the lumbar spine, most pronounced at the L2-L3 level. Electronically signed by: Hector Vargas M.D. 06/27/2017 10:48 AM Dictated Date/Time: 06/27/2017 10:47 AM
== END | disposition home or self-care (01) ==
LOC: C.RAD1850 10:18
PROVIDERS: ATTEND Internal Medicine
DX: G57.21 Lesion of femoral nerve, right lower limb (principal); M48.02 Spinal stenosis, cervical region; M51.36 Other intervertebral disc degeneration, lumbar region

== ENCOUNTER → 2017-07-27 | Day surgery (SDC) | payer OTHER ==
[2017-07-26 10:23] VITALS: Ht 175.3 cm; Wt 81.8 kg
[~2017-07-27] VITALS: Ht 175.3 cm; Wt 81.8 kg
[~2017-07-27] MED LIST changes: +500ML BSS 0.3ML EPI 1:1000PF IRRIG ONE; +ACETAMINOPHEN 325 MG TAB PO PRN; +AMVISC PLUS 0.8ML SYRINGE INT OCU ONE; +ATROPINE SULFATE 0.1 MG/ML 5ML SYR IV PRN; +AcetaZOLAMIDE 250 MG TAB PO SCH; +BETAXOLOL HCL 0.25% OP SUSP PER DROP CHARGE OPR SCH; +BRIMONIDINE TART 0.2% OP SOLN PER DROP CHARGE ONE; +BSS FLUSH ONE; +DEXAMETHASONE SOD INJ 4 MG/ML VIAL ONE; +ENDOCOAT 0.85ML SYRINGE INT OCU ONE; +EpHEDrine SULFATE INJ 50 MG/ML AMP IV PRN; +EpINEphrine INJ 1MG/ML AMP 1 MG/ML AMP ONE; +FENTANYL CITRATE INJ 50 MCG/1 ML 2 ML VIAL ONE; +LACTATED RINGER'S 1000ML 500 ML IV SCH; +LIDOCAINE 4% OP SOLN DROP CHARGE ONE; +LIDOCAINE 4% OP SOLN DROP CHARGE OPR SCH; +LIDOCAINE HCL 1% MPF 2 ML VIAL ONE; +LIDOCAINE HCL 2% 2 ML VIAL (20MG/ML) ONE; +MIDAZOLAM HCL 1 MG/ML 2ML VIAL ONE; +MIX: 4ML BSS 1ML EPI 1:1000 PF INSTIL ONE; +MOXIFLOXACIN OPH SOLN PER DROP CHARGE ONE; +OCUCOAT 1 ML SOLN IO ONE; +ONDANSETRON INJ 2 MG/ML 2 ML VIAL ONE; +POVIDONE-IODINE OP SOLN 30 ML BTL ONE; +PROPARACAINE 0.5% OP SOLN PER DROP CHARGE OPR SCH; +PROPOFOL IV EMULSION 10 MG/ML 20 ML VIAL IV ONE; +TOBRAMYCIN/DEXAMETHASONE OPH OINT PER APPLN CHARGE ONE
--- NOTE | 2017-07-27 07:56 | History & Physical Bridge - SC ---
H&P Re-Evaluation Bridge Note: I have examined the patient, reviewed the History & Physical and in the interval since the performance of the History & Physical I have noted the following changes of clinical significance: No changes noted
[2017-07-27] MEDS: PHENYLEPHRINE HCL 2.5% OP SOLN PER DROP CHARGE OPR SCH ×2 (08:44→08:49)
[2017-07-27] MEDS: TROPICAMIDE 1% OP SOLN PER DROP CHARGE OPR SCH ×2 (08:45→08:50)
[2017-07-27] MEDS: CYCLOPENTOLATE HCL 1% OP SOLN PER DROP CHARGE OPR SCH ×2 (08:46→08:52)
[2017-07-27] MEDS: MOXIFLOXACIN OPH SOLN PER DROP CHARGE OPR SCH ×2 (08:47→08:57)
--- NOTE | 2017-07-27 09:30 | [facility] Operative Report ---
Operative Report Date of Service Jul 27, 2017. Operative Report 1. PREOPERATIVE DIAGNOSIS: Pre Senile nuclear cataract, right eye. 2. POSTOPERATIVE DIAGNOSIS: Pre Senile nuclear cataract, right eye. 3. PROCEDURE: Phacoemulsification of right cataract with posterior chamber lens implant, type Napoleon, model [id number], power +24.5 diopters. ANESTHESIA: General LMA. SURGEON: Dr. Woodward. COMPLICATIONS: None. OPERATING TIME: 10 minutes. 4. OPERATION AND FINDINGS: DESCRIPTION OF PROCEDURE: The right pupil was dilated. The anesthetic was administered using a topical technique. The right eye was prepped and draped. A speculum was placed. A clear corneal incision was formed. The chamber was filled with Amvisc Plus and Endocoat. Epinephrine solution was used. A paracentesis was placed. A capsulorrhexis was performed. The nucleus was hydrodissected. The lens was removed with phacoemulsification. Time was 1.15 seconds. The aspiration unit was used to remove the cortex. The capsule was filled with Amvisc Plus. The lens implant was folded and placed into the capsule. The lens implant was rotated to the correct position. The incision was hydrated. The Amvisc was aspirated. The wound was secure. The chamber was deep. The pupil was round. Brimonidine, TobraDex ointment and Vigamox solution were placed. The speculum was removed. The patient was returned to the Recovery Room in stable condition. I attest to the content of the Intraoperative Record and any orders documented therein. Any exceptions are noted below. The scribe's documentation has been prepared in my presence, under my direction and personally reviewed by me in its entirety. I confirm that the note above accurately reflects all work, treatment, procedures, and medical decision making performed by me. I personally scribed for Jack Woodward M.D. ([email or web address]) on 07/27/17 at 09:30. Electronically submitted by Asiya RIOS).
--- NOTE | 2017-07-27 09:33 | Discharge Instructions-SurgCtr ---
Discharge Instructions Date of Service Jul 27, 2017. Visit Reason for Visit: Cataract Right Eye Discharge Discharge Diagnosis / Problem: lens implant right eye Discharge Goals Goal(s): Improve function Activity Recommendations Activity Limitations: resume your previous activity Lifting Limitations: no more than 10 pounds Exercise/Sports Limitations: gradually increase as tolerated May Resume Sexual Activity: when tolerated Shower/Bathe: tomorrow Driving or Machine Use: resume 1 day after discharge Anesthesia . Post Anesthesia Instructions: If you have had General Anesthesia or IV Sedation: * Do not drive today. * Resume driving when surgeon permits. * Do not make important decisions or sign legal documents today. * Call surgeon for: 1. Temperature elevations greater than 101 degrees F. 2. Uncontrollable pain. 3. Excessive bleeding. 4. Persistent nausea and vomiting. 5. Medication intolerance (nausea, vomiting or rash). * For nausea and vomiting use only clear liquids such as: tea, soda, bouillon until nausea subsides, then gradually increase diet as tolerated. * If you have any concerns or questions, call your surgeon's office. If physician is unavailable and it is an emergency, call 911 or go to the nearest emergency room. . Instructions / Follow-Up Instructions / Follow-Up ACTIVITY RECOMMENDATIONS: * Light activities. * Mild irritation and blurred vision are common for the first few days. * You may walk outside, read, watch television. * Redness around the white part of the eye is common. MEDICATIONS: Resume previous medications unless instructed otherwise by your surgeon. * Take white Diamox (Acetazolamide) tablet at 1 pm today. Start all eye drops at 1 pm today: * Eye drops (today and tomorrow): Prednisone - one drop in operative eye every 3 hours while awake Ofloxacin - one drop in operative eye every 3 hours while awake SPECIAL CARE INSTRUCTIONS: * Tape plastic shield over eye to sleep at night. Call your doctor at with any concerns or problems. FOLLOW UP VISIT: Follow-up with Dr Woodward at [facility] as scheduled. Diet Recommendations Home Diet: no limitations Procedures Procedures Performed: Right Cataract Phacoemulsification With Intraocular Lens Implant; Toric Lens Pending Studies Studies pending at discharge: no Medical Emergencies . Who to Call and When: Medical Emergencies: If at any time you feel your situation is an emergency, please call 911 immediately. . Non-Emergent Contact Non-Emergency issues call your: Secondary Set Up Man Call Non-Emergent contact if: your pain is not controlled [phone] . . "Provider Documentation" section prepared by Jack Woodward. .
--- NOTE | 2017-07-27 10:15 | Anesthesia Progress Nt - [facility] ---
Anesthesia Post Op Note Date & Time Jul 27, 2017 at 10:15 Vital Signs Pain Intensity: 0 Vital Signs Past 12 Hours Date Time Temp Pulse Resp B/P (MAP) Pulse Ox O2 Delivery O2 Flow Rate FiO2 07/27/17 10:12 62 16 94 07/27/17 10:12 63 16 07/27/17 10:11 99/70 07/27/17 10:07 64 12 07/27/17 10:07 63 12 95 07/27/17 10:06 105/75 07/27/17 10:02 73 15 96 07/27/17 10:02 72 15 07/27/17 10:01 100/73 07/27/17 09:57 61 12 07/27/17 09:57 61 12 96 07/27/17 09:56 102/67 07/27/17 09:52 62 10 07/27/17 09:52 62 10 97 07/27/17 09:51 103/65 07/27/17 09:47 61 15 07/27/17 09:47 61 15 96 07/27/17 09:46 106/73 07/27/17 09:42 61 15 96 07/27/17 09:42 61 15 07/27/17 09:41 97/69 07/27/17 09:39 36.6 62 14 107/64 96 Mask 5 07/27/17 09:38 107/64 07/27/17 08:38 36 76 20 129/85 (100) 98 Room Air Notes Mental Status: alert / awake / arousable, participated in evaluation Pt Amnestic to Procedure: Yes Nausea / Vomiting: adequately controlled Pain: adequately controlled Airway Patency, RR, SpO2: stable & adequate BP & HR: stable & adequate Hydration State: stable & adequate Anesthetic Complications: no major complications apparent
[2017-07-27 10:26] VITALS: TEMP 36.5
[2017-07-27 11:15] VITALS: BP 106/66; PULSE 67; O2SAT 95
== END | disposition home or self-care (01) ==
LOC: X.SURG 08:17
PROVIDERS: ATTEND Specialist
DX: H26.8 Other specified cataract (principal); Z88.5 Allergy status to narcotic agent; Z88.8 Allergy status to other drugs, medicaments and biological substances; Z79.899 Other long term (current) drug therapy; Z86.718 Personal history of other venous thrombosis and embolism

== ENCOUNTER → 2017-08-10 | Day surgery (SDC) | payer OTHER ==
[2017-08-09 15:35] VITALS: Ht 175.3 cm; Wt 81.8 kg
[~2017-08-10] VITALS: Ht 175.3 cm; Wt 81.8 kg
[~2017-08-10] MED LIST changes: +BETAXOLOL HCL 0.25% OP SUSP PER DROP CHARGE OPL SCH; -BETAXOLOL HCL 0.25% OP SUSP PER DROP CHARGE OPR SCH; +LIDOCAINE 4% OP SOLN DROP CHARGE OPL SCH; -LIDOCAINE 4% OP SOLN DROP CHARGE OPR SCH; -OCUCOAT 1 ML SOLN IO ONE; +PROPARACAINE 0.5% OP SOLN PER DROP CHARGE OPL SCH; -PROPARACAINE 0.5% OP SOLN PER DROP CHARGE OPR SCH; -PROPOFOL IV EMULSION 10 MG/ML 20 ML VIAL IV ONE; +PROPOFOL IV EMULSION 10 MG/ML 20 ML VIAL ONE
[2017-08-10] MEDS: PHENYLEPHRINE HCL 2.5% OP SOLN PER DROP CHARGE OPL SCH ×2 (08:22→08:27)
[2017-08-10] MEDS: TROPICAMIDE 1% OP SOLN PER DROP CHARGE OPL SCH ×2 (08:23→08:28)
[2017-08-10] MEDS: CYCLOPENTOLATE HCL 1% OP SOLN PER DROP CHARGE OPL SCH ×2 (08:24→08:29)
[2017-08-10] MEDS: MOXIFLOXACIN OPH SOLN PER DROP CHARGE OPL SCH ×2 (08:25→08:35)
--- NOTE | 2017-08-10 09:14 | [facility] Operative Report ---
Operative Report Date of Service August 10, 2017. Operative Report 1. PREOPERATIVE DIAGNOSIS: Pre Senile nuclear cataract, left eye. 2. POSTOPERATIVE DIAGNOSIS: Pre Senile nuclear cataract, left eye. 3. PROCEDURE: Phacoemulsification of left cataract with posterior chamber lens implant, type [employer] Lomb, model [id number], power +23.0 diopters. ANESTHESIA: General. SURGEON: Dr. Woodward. COMPLICATIONS: None. OPERATING TIME: 10 minutes. 4. OPERATION AND FINDINGS: DESCRIPTION OF PROCEDURE: The left pupil was dilated. The anesthetic was administered using a topical technique. The left eye was prepped and draped. A speculum was placed. A clear corneal incision was formed. The chamber was filled with Amvisc Plus and Endocoat. Epinephrine solution was used. A paracentesis was placed. A capsulorrhexis was performed. The nucleus was hydrodissected. The lens was removed with phacoemulsification. Time was 1.28 seconds. The aspiration unit was used to remove the cortex. The capsule was filled with Amvisc Plus. The lens implant was folded and placed into the capsule. The incision was hydrated. The Amvisc was aspirated. The wound was secure. The chamber was deep. The pupil was round. Brimonidine, TobraDex ointment and Vigamox solution were placed. The speculum was removed. The patient was returned to the Recovery Room in stable condition. I attest to the content of the Intraoperative Record and any orders documented therein. Any exceptions are noted below. The scribe's documentation has been prepared in my presence, under my direction and personally reviewed by me in its entirety. I confirm that the note above accurately reflects all work, treatment, procedures, and medical decision making performed by me. I personally scribed for Jack Woodward M.D. ([email or web address]) on 08/10/17 at 09:14. Electronically submitted by Asiya Nye ([email or web address]).
--- NOTE | 2017-08-10 09:16 | Discharge Instructions-SurgCtr ---
Discharge Instructions Date of Service August 10, 2017. Visit Reason for Visit: Cataract Left Eye Discharge Discharge Diagnosis / Problem: lens implant left eye Discharge Goals Goal(s): Improve function Activity Recommendations Activity Limitations: resume your previous activity Lifting Limitations: no more than 10 pounds Exercise/Sports Limitations: gradually increase as tolerated May Resume Sexual Activity: when tolerated Shower/Bathe: tomorrow Driving or Machine Use: resume 1 day after discharge Anesthesia . Post Anesthesia Instructions: If you have had General Anesthesia or IV Sedation: * Do not drive today. * Resume driving when surgeon permits. * Do not make important decisions or sign legal documents today. * Call surgeon for: 1. Temperature elevations greater than 101 degrees F. 2. Uncontrollable pain. 3. Excessive bleeding. 4. Persistent nausea and vomiting. 5. Medication intolerance (nausea, vomiting or rash). * For nausea and vomiting use only clear liquids such as: tea, soda, bouillon until nausea subsides, then gradually increase diet as tolerated. * If you have any concerns or questions, call your surgeon's office. If physician is unavailable and it is an emergency, call 911 or go to the nearest emergency room. . Instructions / Follow-Up Instructions / Follow-Up ACTIVITY RECOMMENDATIONS: * Light activities. * Mild irritation and blurred vision are common for the first few days. * You may walk outside, read, watch television. * Redness around the white part of the eye is common. MEDICATIONS: Resume previous medications unless instructed otherwise by your surgeon. * Take white Diamox (Acetazolamide) tablet at 1 pm today. Start all eye drops at 1 pm today: * Eye drops (today and tomorrow): Prednisone - one drop in operative eye every 3 hours while awake Ofloxacin - one drop in operative eye every 3 hours while awake SPECIAL CARE INSTRUCTIONS: * Tape plastic shield over eye to sleep at night. Call your doctor at with any concerns or problems. FOLLOW UP VISIT: Follow-up with Dr Woodward at [facility] as scheduled. Diet Recommendations Home Diet: no limitations Procedures Procedures Performed: Left Eye Cataract Phacoemulsification With Intraocular Lens Implant Pending Studies Studies pending at discharge: no Medical Emergencies . Who to Call and When: Medical Emergencies: If at any time you feel your situation is an emergency, please call 911 immediately. . Non-Emergent Contact Non-Emergency issues call your: Vice President Investor Relations Call Non-Emergent contact if: your pain is not controlled [phone] . . "Provider Documentation" section prepared by Jack Woodward. .
--- NOTE | 2017-08-10 10:13 | Anesthesia Progress Nt - [facility] ---
Anesthesia Post Op Note Date & Time August 10, 2017 at 10:13 Vital Signs Pain Intensity: 0 Vital Signs Past 12 Hours Date Time Temp Pulse Resp B/P (MAP) Pulse Ox O2 Delivery O2 Flow Rate FiO2 08/10/17 10:11 36.5 08/10/17 10:05 63 10 94/67 (73) 95 08/10/17 10:05 62 10 08/10/17 10:00 61 10 08/10/17 10:00 61 10 99/65 (68) 93 08/10/17 09:55 62 10 95/65 (74) 94 08/10/17 09:55 63 10 08/10/17 09:51 Room Air 08/10/17 09:50 62 12 107/65 (76) 97 08/10/17 09:50 61 12 08/10/17 09:45 60 10 08/10/17 09:45 61 10 101/63 (72) 97 08/10/17 09:40 62 11 99/62 (67) 98 08/10/17 09:40 61 11 08/10/17 09:35 62 11 92/60 (72) 97 08/10/17 09:35 62 11 08/10/17 09:30 62 10 100/59 (71) 97 08/10/17 09:30 62 10 08/10/17 09:27 99/61 (66) 08/10/17 09:25 36.3 65 12 99/61 96 Diffusion Mask 5 08/10/17 08:13 36.9 88 16 111/75 (87) 96 Room Air Notes Mental Status: alert / awake / arousable, participated in evaluation Pt Amnestic to Procedure: Yes Nausea / Vomiting: adequately controlled Pain: adequately controlled Airway Patency, RR, SpO2: stable & adequate BP & HR: stable & adequate Hydration State: stable & adequate Anesthetic Complications: no major complications apparent
[2017-08-10 11:06] VITALS: BP 119/72; PULSE 67; O2SAT 95
== END | disposition home or self-care (01) ==
LOC: X.SURG 08:06
PROVIDERS: ATTEND Specialist
DX: H25.12 Age-related nuclear cataract, left eye (principal); M19.90 Unspecified osteoarthritis, unspecified site; Z87.442 Personal history of urinary calculi; Z88.5 Allergy status to narcotic agent

== ENCOUNTER 2024-10-30 06:10 | Observation (INO) ==
--- NOTE | 2024-10-02 09:14 | PAT Medication Instructions ---
Medication Instructions Date of Service October 02, 2024 Home Medications Medication Instructions Recorded amoxicillin 500 mg tablet 2,000 mg (4 x 500 mg) PO UD PRN 08/02/22 ONE HOUR PRIOR TO DENTAL PROCEDURES. #12 tabs sildenafil 50 mg tablet 50 mg PO UD PRN sexual activity 10/18/23 #10 tabs ondansetron 4 mg disintegrating 4 mg PO UD PRN nausea and vomiting 03/26/24 tablet #30 tabs peg 3350-sod sulf,[id number] See Rx Instructions PO .COMPLEX #2 08/02/24 178.7-7.3-0.5-1.12-0.9 gram oral mL soln (Suflave) gabapentin 400 mg capsule 400 mg PO TID #270 caps 08/13/24 oxycodone 10 mg tablet,crush 10 mg PO BID #60 tabs 09/04/24 resistant,extended release 12 hr oxycodone-acetaminophen 5 mg-325 1 tab PO Q6H PRN pain 15 days #60 09/20/24 mg tablet tabs azelaic acid 20 % topical cream 1 appln topical DAILY PRN loratadine-pseudoephedrine ER 10 mg-240 mg tablet,extended [id number] 1 tab PO UD PRN ciclopirox 8 % topical solution 1 applic topical UD PRN mesalamine 1,000 mg rectal suppository (Canasa) 1 g AL UD PRN amoxicillin 500 mg tablet 2,000 mg (4 x 500 mg) PO UD PRN sildenafil 50 mg tablet 50 mg PO UD PRN ondansetron 4 mg disintegrating tablet 4 mg PO UD PRN peg 3350-sod sulf,[id number] 178.7-7.3-0.5-1.12-0.9 gram oral soln (Suflave) See Rx Instructions PO .COMPLEX gabapentin 400 mg capsule 400 mg PO TID oxycodone 10 mg tablet,crush resistant,extended release 12 hr 10 mg PO BID oxycodone-acetaminophen 5 mg-325 mg tablet 1 tab PO Q6H PRN dextroamphetamine-amphetamine 10 mg tablet 5 - 12.5 mg PO BID trazodone 50 mg tablet 50 mg PO HS PRN Continue as directed amoxicillin 500 mg tablet 2,000 mg (4 x 500 mg) PO UD PRN(if needed) ondansetron 4 mg disintegrating tablet 4 mg PO UD PRN(if needed) ASK your prescriber and surgeon peg 3350-sod sulf,[id number] 178.7-7.3-0.5-1.12-0.9 gram oral soln (Suflave) See Rx Instructions PO .COMPLEX STOP taking 24 hours before surgery azelaic acid 20 % topical cream 1 appln topical DAILY PRN ciclopirox 8 % topical solution 1 applic topical UD PRN DO NOT take the morning of surgery loratadine-pseudoephedrine ER 10 mg-240 mg tablet,extended [id number] 1 tab PO UD PRN mesalamine 1,000 mg rectal suppository (Canasa) 1 g AL UD PRN sildenafil 50 mg tablet 50 mg PO UD PRN dextroamphetamine-amphetamine 10 mg tablet 5 - 12.5 mg PO BID Take morning of surgery With a small sip of water, OTHERWISE NOTHING TO EAT OR DRINK AFTER MIDNIGHT: gabapentin 400 mg capsule 400 mg PO TID oxycodone 10 mg tablet,crush resistant,extended release 12 hr 10 mg PO BID oxycodone-acetaminophen 5 mg-325 mg tablet 1 tab PO Q6H PRN(if needed) Take evening before surgery gabapentin 400 mg capsule 400 mg PO TID oxycodone 10 mg tablet,crush resistant,extended release 12 hr 10 mg PO BID oxycodone-acetaminophen 5 mg-325 mg tablet 1 tab PO Q6H PRN(if needed) dextroamphetamine-amphetamine 10 mg tablet 5 - 12.5 mg PO BID trazodone 50 mg tablet 50 mg PO HS PRN(if needed) Other Notes If you have any questions please call us at [phone] or [phone] or [phone] or [phone]
--- NOTE | 2024-10-08 09:12 | Anesthesiology Consultation ---
Date of Service October 08, 2024 Assessment & Plan (1) Encounter for pre-operative examination: - potential difficult intubation: limited neck ROM, h/o cervical spine surgery C4-T1 per patient. Patient also wants to discuss option of potential hospital pillow placement around neck during surgery with assigned anesthesiologist morning of surgery. Chart Review Chart Review: Acceptable Risk for Surgery and Patient seen in Pre Admission Testing Teaching & Discussion Pre-Anesthesia Teaching/Discussion Notes: Instructed NPO after midnight before surgery, except medications with 15 cc of water. Medication instructions provided according to the PAT guidelines. History Surgery Operation Date: 10/30/24 07:15 Proposed Procedures p L2-L3, L3-L4, L4-L5 Decompression - Doc Gunter MD Height/Weight Height: 5 ft 9 in Weight: 86.6 kg Allergies Allergy/AdvReac Type Severity Reaction Status Date / Time hydromorphone Allergy Intermediate muscle Verified 10/08/24 09:29 spasms morphine AdvReac Mild Nausea Verified 09/28/24 10:02 Medications Home Medications Medication Instructions Recorded Confirmed Last Taken azelaic acid 20 % topical cream 1 appln topical DAILY PRN rosacea 12/03/18 09/28/24 Unknown loratadine-pseudoephedrine ER 10 1 tab PO UD PRN allergy symptoms 12/03/18 09/28/24 Unknown mg-240 mg tablet,extended [id number] ciclopirox 8 % topical solution 1 applic topical UD PRN TOENAIL 06/30/22 09/28/24 Unknown FUNGUS mesalamine 1,000 mg rectal 1 g IN UD PRN ulcerative colitis 06/30/22 09/28/24 Unknown suppository (Canasa) flare up amoxicillin 500 mg tablet 2,000 mg (4 x 500 mg) PO UD PRN 08/02/22 09/28/24 Unknown ONE HOUR PRIOR TO DENTAL PROCEDURES. #12 tabs sildenafil 50 mg tablet 50 mg PO UD PRN sexual activity 10/18/23 09/28/24 Unknown #10 tabs ondansetron 4 mg disintegrating 4 mg PO UD PRN nausea and vomiting 03/26/24 09/28/24 Unknown tablet #30 tabs peg 3350-sod sulf,[id number] See Rx Instructions PO .COMPLEX #2 08/02/24 Unknown 178.7-7.3-0.5-1.12-0.9 gram oral mL soln (Suflave) gabapentin 400 mg capsule 400 mg PO TID #270 caps 08/13/24 09/28/24 Unknown dextroamphetamine-amphetamine 10 5 - 12.5 mg PO BID 09/28/24 09/28/24 Unknown mg tablet trazodone 50 mg tablet 50 mg PO HS PRN Sleep 09/28/24 09/28/24 Unknown oxycodone 10 mg tablet,crush 10 mg PO BID #60 tabs 10/03/24 Unknown resistant,extended release 12 hr oxycodone-acetaminophen 5 mg-325 1 tab PO Q6H PRN pain 15 days #60 10/08/24 Unknown mg tablet tabs Additional Notes: He was instructed cannot take TUMS morning of surgery. Past Medical History Medical History (Updated 10/08/24 @ 09:39 by Rachel Griffith PA-C) ADHD Anticipated difficulty with intubation limited cervical spine ROM; s/p C4-T1 surgery DVT (deep venous thrombosis) (~2016) hx 2016--right leg; after right hip revision Foot drop RT (WEARS BRACE) GERD (gastroesophageal reflux disease) occasional-takes TUMS prn History of kidney stones Lumbar back pain Lumbar radiculopathy Lumbar stenosis Osteoarthritis Ulcerative colitis Patient denies h/o stroke, seizures, heart attack, heart failure, DM, HTN, or blood transfusions. Exercise / Class Metabolic Activity II 4-5 Yardwork/Stairs/Walk up hill (ambulates with walking stick, denies chest discomfort or shortness of breath with one flight of stairs) Past Family History Family History Grandmother (Maternal) Myocardial infarction Father Crohn's disease Colorectal cancer Grandfather (Paternal) Emphysema, unspecified Mother Hypertension Other No family history of adverse response to anesthesia Denies family history of Ovarian cancer Prostate cancer Breast cancer Past Surgical History Surgical History History of bilateral cataract extraction History of cervical spinal surgery C4-T1, limited ROM in neck History of colonoscopy with polypectomy History of revision of total replacement of right hip joint (~2016) History of tooth extraction Hx of hand surgery trigger finger release, left middle finger 07/07/2022 Hx of lithotripsy x2 Hx of vasectomy S/P appendectomy S/P hip replacement right Past Anesthesia History No Family Hx of Anesthesia Complications and Other (anticipated difficult intubation) History of PONV History of PONV (with morphine) and Hx of Motion Sickness Social History Smoking Status: Never smoker Do You Dip or Chew Tobacco: No Hx Alcohol Use: Yes ("1-2 a day" vodka) Alcohol type: hard liquor alcohol intake frequency: 0-2 drinks per day Hx Substance Use: No substance use type: does not use Review of Systems Patient denies chest pain, shortness of breath, dyspnea on exertion, snoring, witnessed apneas, fever, chills, cough, wheezing, or palpitations. Physical Exam Vital Signs Vitals BP 116/72 P 71 TEMP 97.9 SP02 97% on RA RESP 18 Physical Patient resting comfortably in chair in no acute distress, alert and oriented, responding appropriately throughout visit Full cervical extension range of motion without pain TMD 3.5 finger breadths Mallampati Score 2 Dentition: front cracked tooth, several caps/crowns; denies loose teeth, implants or bridges Lungs: normal respiratory effort. Good air movement, clear throughout to auscultation, no adventitious breath sounds Cardiac: regular rate and rhythm, no murmurs noted Carotid arteries: negative bruit bilat Lab Results Anesthesia Preop Results Results Anesthesia Widget: WBC 5.79 K/ul (4.8-10.8) 10/08/24 Hgb 14.4 g/dl (14.0-18.0) 10/08/24 Hct 41.3 % (42.0-52.0) L 10/08/24 Plt 233 K/uL (130-400) 10/08/24 Na 139 mmol/L (136-145) 10/08/24 K 4.0 mmol/L (3.5-5.1) 10/08/24 Cl 107 mmol/L (98-107) 10/08/24 CO2 26 mmol/L (21-32) 10/08/24 BUN 17 mg/dl (6-23) 10/08/24 Creat 0.75 mg/dl (0.6-1.4) 10/08/24 Glucose Level 96 mg/dl (70-99(Fasting)) 10/08/24 PT 10.3 Seconds (9.0-12.0) 10/08/24 PTT 28 Seconds (21-31) 10/08/24 INR 0.9 (0.9-1.1) 10/08/24 HA1c 5.3 % (4.5-5.6) 10/08/24 Blood Type A Positive 10/08/24 Antibody Screen NEGATIVE 10/08/24 Testing Electrocardiogram Date: 10/08/24 NSR, rate 63 bpm Chest X-Ray Date: 10/08/24 1. The lungs are clear. 2. The right interpedicular screw in T1 is fractured. Cervical Spine Date: 08/14/24 CT: Multilevel bilateral neural foraminal narrowing at the lower cervical and upper thoracic spine. Otherwise as described. MRI 08/04/24: 1. Significantly compromised examination due to multiple artifacts causing image degradation limiting evaluation. Within the given limitations, there is status post posterior fixation of C4 to T1 levels with laminectomies. 2. There are post-surgical changes showing bony hypertrophy causing mild narrowing of the spinal canal associated with neural foraminal stenosis of varying degrees resulting in radicular compression of moderate intensity, as described above. 3. In comparison to the prior MRI, interval progression in the degenerative disc disease identified.
[2024-10-30] MEDS: ACETAMINOPHEN 500 MG TAB PO SCH (06:26)
[2024-10-30] MEDS: GABAPENTIN 300 MG CAP PO SCH (06:26)
[2024-10-30] MEDS: LR 60ML/HR IV SCH (06:26)
[2024-10-30] MEDS: LR 15ML/HR IV SCH (06:42)
[2024-10-30] MEDS ORDERED: DEXAMETHASONE SOD INJ 4 MG/ML VIAL ONE (06:54)
[2024-10-30] MEDS ORDERED: ONDANSETRON INJ 2 MG/ML 2 ML VIAL ONE (06:54)
[2024-10-30] MEDS ORDERED: LIDOCAINE 2% 2 ML VIAL/AMP(20MG/ML) INFIL ONE (06:54)
[2024-10-30] MEDS ORDERED: MIDAZOLAM HCL 1 MG/ML 2ML VIAL ONE (06:55)
[2024-10-30] MEDS ORDERED: ROCURONIUM BROMIDE 10 MG/ML 5 ML VIAL IV ONE (06:55)
[2024-10-30] MEDS ORDERED: GLYCOPYRROLATE 0.2 MG/ML VIAL ONE (06:55)
[2024-10-30] MEDS ORDERED: PROPOFOL IV EMULSION 10 MG/ML 20 ML VIAL IV ONE (06:55)
[2024-10-30] MEDS ORDERED: SUGAMMADEX SODIUM 200 MG/2 ML VIAL IV ONE (07:01)
--- NOTE | 2024-10-30 07:26 | History & Physical Bridge Note ---
Date of Service October 30, 2024 History & Physical Bridge Note I have examined the patient, reviewed the History & Physical and in the interval since the performance of the History & Physical I have noted the following changes of clinical significance: no changes noted
--- NOTE | 2024-10-30 07:27 | History & Physical Report ---
Date of Service October 30, 2024 History of Present Illness Chief Complaint: low back pain, leg pain, lumbar stenosis. Primary Care Provider: Jack Negro MD Patient returns for follow-up on his MRI for the lumbar spine from July 17, continued complaints. These include also some upper extremity complaints with interosseous wasting and for the 1st and 2nd digits, continued some generalized numbness and tingling, he is status post his prior posterior cervical fusion instrumentation at [facility] in 2017. Lumbar symptoms continue, with pain more in the left lumbosacral spine radiating to the left buttock and posterior posterior lateral thigh. 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 He did have a positive Tinel's at the right elbow. Review of MRI images lumbar spine from July 17, 2024 from [facility], this my separate interpretation, this reveals the patient have degenerative changes involving the level of lumbar 5 levels, the thoracic disc levels are unremarkable. At L1-2 and L2-3, only mild canal stenosis I would rate mild to moderate at most, but at the L2-3 level on the left he has a left lateral recess disc extrusion causing stenosis in the left lateral recess region. L3-4 and L4- 5 reveal severe stenosis, there are significant Modic changes at L3-4 and degeneration at this level. L5-S1 shows some limited degenerative changes, but no significant central or foraminal stenosis. Impression: Chronic right foot drop after right hip revision surgery a number of years ago, but development of combination of back pain and left lower extremity symptomatology but also bilateral upper extremity symptoms status post prior surgery cervical spine. High-grade stenosis especially noted at L3-4 and L4-5 with a left-sided disc extrusion at L2-3. Plan: Today I reviewed the imaging studies with the patient and his I had an extensive visit least 40 minutes in length and in this time, reviewed the s tudies with the patient including the radiographs we actually went back and reviewed some prior cervical and lumbar MRI went over the findings. I related that relative to the lumbar spine we have a number of potential options, but at the very least this would include decompression at the L3-4 and L4-5 levels and the disc extrusion at L2-3. I related that other procedures could be considered to address the loss of lordosis with interbody cages and instrumentation but as the patient's main complaint centers with the issues with his distance walking and then having to sit for rest this might be the reasonable option relative to addressing those symptoms versus a multilevel fusion which would have to incorporate multiple levels of his lumbar spine. I related that at this time I still recommend evaluation of the cervical spine, he has cord compression and cord changes before, he is now 8 years out from this surgery, we will order a cervical MRI and as he has fractured hardware on the right at T1 we will order a CT scan to assess the prior fusion. In addition unguinal order bilateral upper extremity and lower extremity EMG nerve conduction studies, when he is completed these test to return to the office for additional discussion final decision relative to the cervical spine and the lumbar spine, he was in agreement with this plan. Allergies Allergy/AdvReac Type Severity Reaction Status Date / Time hydromorphone Allergy Intermediate muscle Verified 10/30/24 06:23 spasms morphine AdvReac Mild Nausea Verified 10/30/24 06:23 Home Medications Medication Instructions Recorded Confirmed Type azelaic acid 20 % topical cream 1 appln topical DAILY PRN rosacea 12/03/18 10/30/24 History loratadine-pseudoephedrine ER 10 1 tab PO UD PRN allergy symptoms 12/03/18 10/30/24 History mg-240 mg tablet,extended [id number] ciclopirox 8 % topical solution 1 applic topical UD PRN TOENAIL 06/30/22 10/30/24 History FUNGUS mesalamine 1,000 mg rectal 1 g TX UD PRN ulcerative colitis 06/30/22 10/30/24 History suppository (Canasa) flare up amoxicillin 500 mg tablet 2,000 mg (4 x 500 mg) PO UD PRN 08/02/22 10/30/24 Rx ONE HOUR PRIOR TO DENTAL PROCEDURES. #12 tabs sildenafil 50 mg tablet 50 mg PO UD PRN sexual activity 10/18/23 10/30/24 Rx #10 tabs ondansetron 4 mg disintegrating 4 mg PO UD PRN nausea and vomiting 03/26/24 10/30/24 Rx tablet #30 tabs gabapentin 400 mg capsule 400 mg PO TID #270 caps 08/13/24 10/30/24 Rx dextroamphetamine-amphetamine 10 5 - 12.5 mg PO BID 09/28/24 10/30/24 History mg tablet trazodone 50 mg tablet 50 mg PO HS PRN Sleep 09/28/24 10/30/24 History oxycodone-acetaminophen 5 mg-325 1 tab PO Q6H PRN pain 15 days #60 10/23/24 10/30/24 Rx mg tablet tabs peg 3350-sod sulf,[id number]-ugs-skn See Rx Instructions PO .COMPLEX #2 10/24/24 10/30/24 Rx 178.7-7.3-0.5-1.12-0.9 gram oral mL soln (Suflave) oxycodone 10 mg tablet,crush 10 mg PO BID #60 tabs 10/26/24 10/30/24 Rx resistant,extended release 12 hr Past Med/Surg History Problem List Lumbar disc herniation with radiculopathy Lumbar stenosis with neurogenic claudication Ulnar neuropathy Cervical radiculopathy Lumbar radiculopathy Foot drop, right Lumbar spondylosis Chronic hip pain after total replacement of hip joint Inflamed seborrheic keratosis Hyperglycemia Dyslipidemia Trigger finger Dupuytren's contracture of left hand Vitamin D deficiency Ulcerative proctitis Encounter for pre-operative examination Hyperlipidemia (Acute) Neuropathy of right sciatic nerve (Acute) Spinal stenosis Myelomalacia of cervical cord Right hip pain Lumbar back pain Medical History Anticipated difficulty with intubation limited cervical spine ROM; s/p C4-T1 surgery GERD (gastroesophageal reflux disease) occasional-takes TUMS prn History of kidney stones Lumbar stenosis Lumbar radiculopathy Lumbar back pain DVT (deep venous thrombosis) (~2016) hx 2017--right leg; after right hip revision ADHD Osteoarthritis Ulcerative colitis Foot drop RT (WEARS BRACE) Surgical History History of cervical spinal surgery C4-T1, limited ROM in neck Hx of hand surgery trigger finger release, left middle finger 07/07/2022 History of revision of total replacement of right hip joint (~2016) Hx of vasectomy History of colonoscopy with polypectomy History of tooth extraction History of bilateral cataract extraction S/P hip replacement right S/P appendectomy Hx of lithotripsy x2 Family History Grandmother (Maternal) Myocardial infarction Father Crohn's disease Colorectal cancer Grandfather (Paternal) Emphysema, unspecified Mother Hypertension Other No family history of adverse response to anesthesia Denies family history of Ovarian cancer Prostate cancer Breast cancer Social History Smoking Status: Never smoker Second Hand Exposure: No; Do You Dip or Chew Tobacco: No; Tobacco Cessation Education Requested by Patient: No Hx Alcohol Use: Yes ("1-2 a day" vodka) Alcohol type: hard liquor Hx Substance Use: No Preferred Language: Jamaican Communication Ability: Effective Visual Impairment: No Limitations Hearing Ability: Normal 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 Boat Required: No Beliefs That Will Affect Care: None marital status: Single Current Living Situation: Spouse current occupational status: employed 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
[2024-10-30] MEDS ORDERED: KETAMINE HCL 10MG/ML SYR ONE (08:31)
[2024-10-30] MEDS: BUPIVACAINE 0.5 % 5 MG/1 ML MPF 30ML VIAL ONE (11:16)
[2024-10-30] MEDS: GELATIN SPONGE 12-7MM ONE (11:16)
[2024-10-30] MEDS: THROMBIN 5000 UNITS KIT ONE (11:16)
[2024-10-30] MEDS: FLOSEAL HEMOSTATIC MATRIX 5ML TOP ONE (11:17)
[2024-10-30] MEDS: VANCOMYCIN HCL 1000MG/20ML VIAL ONE (11:17)
--- NOTE | 2024-10-30 11:39 | Fluoroscopy Report ---
FL lumbar spine 2-3V CLINICAL HISTORY: L2-L5 DECOMPRESSION COMPARISON STUDY: None FLUOROSCOPY TIME: 35 seconds FLUOROSCOPY IMAGES: 4 EXPOSURE DOSE: 20 mGy FINDINGS: Fluoroscopy was provided for lumbar surgery. IMPRESSION: Intraoperative fluoroscopy. ACT 112: Negative or not required by law. Electronically signed by: Sushil Barragan M.D. 10/30/2024 11:38 AM
[2024-10-30] MEDS ORDERED: NALOXONE HCL 0.4 MG/1 ML VIAL/CARP IV PRN (11:50)
[2024-10-30] MEDS ORDERED: METOCLOPRAMIDE HCL INJ 5 MG/ML 2 ML VIAL IV PRN (11:50)
[2024-10-30] MEDS ORDERED: ACETAMINOPHEN 500 MG TAB PO PRN (11:50)
[2024-10-30] MEDS ORDERED: ALUMINUM/MAGNESIUM SUSP 30 ML UDC PO PRN (11:50)
[2024-10-30] MEDS ORDERED: FAMOTIDINE 20 MG TAB PO PRN (11:50)
[2024-10-30] MEDS ORDERED: DO NOT ADMINISTER PNEUMOCOCCAL VACCINE PRN (11:50)
[2024-10-30] MEDS ORDERED: PHARMACY GLYCEMIC MGMT CONSULT PRN (11:50)
[2024-10-30] MEDS ORDERED: MAGNESIUM HYDROXIDE SUSP 30 ML UDC PO PRN (11:50)
[2024-10-30] MEDS ORDERED: diphenhydrAMINE Capsule 25 MG CAP PO PRN (11:50)
[2024-10-30] MEDS ORDERED: SOD PHOSPHATE/SOD BIPHOSPHATE ENEMA 132 ML BTL PR PRN (11:50)
[2024-10-30] MEDS ORDERED: DO NOT ADMINISTER FLU VACCINE PRN (11:50)
[2024-10-30] MEDS ORDERED: ONDANSETRON INJ 2 MG/ML 2 ML VIAL IV PRN (11:50)
[2024-10-30] MEDS ORDERED: PROMETHAZINE 12.5 MG/50.5 ML BAG IV PRN (11:50)
--- NOTE | 2024-10-30 11:50 | Post Operative Brief Note ---
PG Immediate Post Op with CF Date of Surgery October 30, 2024 Pre & Post Diagnosis Operation Date: 10/30/24 07:30 Pre-Op Diagnosis: Lumbar disc herniation with radiculopathy Lumbar stenosis with neurogenic claudication Post-Op Diagnosis: Lumbar disc herniation with radiculopathy Lumbar stenosis with neurogenic claudication I identified the patient and participated in the time-out.: Yes Procedure Operation Date: 10/30/24 07:30 Actual Procedures p L2-L3, L3-L4, L4-L5 Decompression(Not Applicable) - Doc Gunter MD Surgeon Doc Gunter MD Distributor Publications none Estimated Blood Loss 60 Findings Consistent with Post-Op Diagnosis Specimens Specimen Description: No specimen per surgeon Drains Zuñiga Catheter (zuñiga inserted after induction by Susan Mai. One attempt, no difficulty. )
[2024-10-30] MEDS ORDERED: ATROPINE SULFATE 0.1 MG/ML 10ML SYR IV PRN (12:09)
[2024-10-30] MEDS ORDERED: PROMETHAZINE HCL 6.25 MG in SODIUM CHLORIDE 0.9% 50 ML IV PRN (12:09)
[2024-10-30] MEDS: ONDANSETRON INJ 2 MG/ML 2 ML VIAL IV PRN (12:58)
--- NOTE | 2024-10-30 13:13 | Anesthesiology Progress Note ---
Date of Service October 30, 2024 Anesthesia Post Procedure Vital Signs Vital Signs: Temp Pulse Pulse Resp BP Pulse Ox O2 Del Method 10/30/24 13:10 36.4 C L 75 12 123/69 95 Nasal Cannula 10/30/24 13:00 77 16 118/70 93 Nasal Cannula 10/30/24 12:50 86 15 105/71 97 Room Air 10/30/24 12:40 83 14 116/72 97 Oxymask 10/30/24 12:30 75 12 101/63 93 Oxymask 10/30/24 12:20 82 15 108/64 96 Oxymask 10/30/24 12:10 85 12 105/67 96 Oxymask 10/30/24 12:00 76 16 107/67 97 Oxymask 10/30/24 11:50 36.6 C 83 12 111/66 96 Oxymask 10/30/24 06:19 36.8 C 78 20 128/73 96 Room Air O2 Flow Rate 10/30/24 13:10 2 10/30/24 13:00 2 10/30/24 12:50 10/30/24 12:40 6 10/30/24 12:30 6 10/30/24 12:20 6 10/30/24 12:10 6 10/30/24 12:00 6 10/30/24 11:50 6 10/30/24 06:19 Pain Intensity Bilateral Lower Back: Pain Intensity: 4 Transfer of Care Handoff Completed per policy Notes Mental Status: alert / awake / arousable and participated in evaluation Patient Amnestic to Procedure: Yes Nausea / Vomiting: adequately controlled Pain: adequately controlled Airway Patency, RR, SpO2: stable & adequate BP & HR: stable & adequate Hydration State: stable & adequate Anesthetic Complications: no major complications apparent and Pt Satisfied with anesthetic care Notes: erthromycin gtt prescribed for likely L corneal abrasion.
[2024-10-30] MEDS ORDERED: ONDANSETRON 4 MG OD TAB PO PRN (13:39)
[2024-10-30] MEDS ORDERED: NON-FORMULARY MEDICATION (Peg 3350-Sod Sulf,Chlr-Pot-Mag [Suflave] 178.7-7.3-0.5 gram reco PO SCH (13:39)
[2024-10-30] MEDS ORDERED: LORATADINE PSEUDOEPHEDRINE PO PRN (13:39)
[2024-10-30] MEDS: HYDROmorphone INJ 1 MG/ML SYRINGE IV PRN (14:12)
--- NOTE | 2024-10-30 14:20 | Hospitalist Progress Note ---
Date of Service October 30, 2024 Assessment & Plan (1) Lumbar disc herniation with radiculopathy: (2) Left corneal abrasion: (3) ADHD: (4) Foot drop: Plan #S/p lumbar spine decompression L2-L5 decompression with Dr. Gunter on 10/30 Perioperative antibiotics, pain control, fluids, and DVT PPx per the primary team IV antiemetics and pain control as needed Continue gabapentin 400mg p.o. TID for now; may recommend dose reduction pending renal function CBC and BMP ordered, pending Patient reports minimal pain relief with Dilaudid; BMP ordered to assess for renal function/alternative pain control options #Left eye corneal abrasion ? Occurred during procedure Patient reports he is having significant pain following the procedure Not a contact lens wear No foreign bodies identified on clinical exam Initiate erythromycin ointment 0.5inch ribbons 4 times per day x 3 days #ADHD Patient reports he takes dextroamphetamine 10 mg tablets daily (5 to 15 mg depending on what he thinks he might need that day) He reports he has not taken them over the past several days, and does not believe he will need them in the hospital Will touch base with pharmacy, dextroamphetamine is non-formulary One-to-one conversion with Adderall; will place order for Adderall 5mg p.o. TID PRN #Right foot drop Chronic; noted #Insomnia Continue trazodone PRN HS Thank you for allowing us to participate in the care of this patient, please reach out with any questions or concerns; we will continue to follow. Admission and Anticipated Discharge Date Admission Date: October 30, 2024 Supervising Physician Co-Signing Physician Notes I personally examined the patient and verified all blevins points of history and exam, discussed case, and agree with decision making with Josh Gonzalez PA-C eye feeling better than earlier, pain under better control as well vitals noted nad heent nc at mmm L eye with ointment noted no exudate or erythema, EOMI, vision seems grossly intact (obviously limited exam at this time) breathing unlabored no accessory muscles good effort skin no rashes no pallor or icterus neuro no focal deficits corneal abrasion - erythromycin ointment back pain - post op - multimodal pain control otherwise as above Subjective Mr. Ruiz is a 69-year-old male with PMH of spinal stenosis, lumbar radiculopathy, myelomalacia of the cervical cord, Dupuytren's contracture, HLD, and ulcerative proctitis. He presented on 10/30 for an L2-L5 decompression with Dr. Gunter. Per review of brief operative report, EBL was listed as 60 cc, and findings were consistent with postop diagnosis (lumbar disc herniation with radiculopathy). Per review of VS postop, patient's vitals have been stable; no reported episodes of hypotension or tachycardia; SpO2 is 92% on 2L NC. Upon entering the room, patient reports that he has having significant pain in both his left thigh and his lower back. He reports that there is a "burning" pain around the incision site. The pain stays in his lower back without radiation down the legs. He reports the Dilaudid not helped much to alleviate his pain. He rates his pain 6.5/10 at present, and 9/10 at worst. Additionally, he is having severe pain in his left eye. Patient reports his eye was feeling fine prior to the surgery, but when he regained consciousness following surgery, he was having left eye pain, as well as difficulty opening the eye. Patient does not wear contacts at baseline. Patient denies photophobia or drainage from the eye. He reports he still maintains vision in the eye when opening it, but opening the eye leads to severe pain. ROS: Patient endorses severe left-sided eye pain, and severe lower back pain. Patient denies fever, chills, sweating, photophobia, changes in vision, purulent drainage from the eye, chest pain, chest palpitations, SOB, pleuritic CP, cough, abdominal pain, N/V following the procedure, pain in the legs, or numbness or tingling in the legs. Review of Systems Review of Systems: See HPI above Physical Exam Physical Exam: General: Patient appears to be in acute physical distress upon entering the room; family at bedside; non-toxic appearing; well-nourished; cooperative HEENT: normocephalic, atraumatic; wet towel draped over eyes; patient exhibits ability to open his right eye independently with full EOMs intact; patient exhibits difficulty opening his left eye independently; corneal abrasion noted on the lateral aspect of the left eye just below the pupil; left eye is watery, but sclera is not erythematous; no purulent drainage appreciated Neck: supple; trachea midline Skin: warm, dry without signs of tenting; no cyanosis; no rashes, bruising, lesions, or erythema noted CV: chest wall NTP; RRR; S1/S2 normal; no murmurs/rubs/gallops; pulses intact and symmetric at radial, DP, and PT Lungs: no acute respiratory distress; symmetrical chest wall expansion; clear breath sounds across all lung arechiga w/o adventitious sounds; no wheezing ABD: Soft, NTP; BS present; no rebound/guarding; moderate distention of the abdomen; no rashes or bruising appreciated on the abdomen or flanks bilaterally MSK: no tics or fasciculations; no edema noted in the LEs b/l, nonerythematous; patient demonstrates ability to wiggle toes bilaterally (L>R); patient demonstrates ability to flex knees independently approximately 30 degrees Neuro: A&Ox3; normal mood and affect; fluent speech; patient reports diminished sensation in the right foot when compared to the left (but reports this is chronic due to his foot drop); patient reports sensation is intact and symmetric in the knees bilaterally assessed via light touch and multiple dermatomes Results & Data Results & Data Vital Signs (Past 12 Hours) Vital Signs Temp Pulse Pulse Resp BP Pulse Ox O2 Del Method 10/30/24 13:35 36.5 C 74 16 125/67 93 Nasal Cannula 10/30/24 13:25 79 14 116/68 95 Nasal Cannula 10/30/24 13:10 36.4 C L 75 12 123/69 95 Nasal Cannula 10/30/24 13:00 77 16 118/70 93 Nasal Cannula 10/30/24 12:50 86 15 105/71 97 Room Air 10/30/24 12:40 83 14 116/72 97 Oxymask 10/30/24 12:30 75 12 101/63 93 Oxymask 10/30/24 12:20 82 15 108/64 96 Oxymask 10/30/24 12:10 85 12 105/67 96 Oxymask 10/30/24 12:00 76 16 107/67 97 Oxymask 10/30/24 11:50 36.6 C 83 12 111/66 96 Oxymask 10/30/24 06:19 36.8 C 78 20 128/73 96 Room Air O2 Flow Rate 10/30/24 13:35 2 07/29/25 13:25 2 10/30/24 13:10 2 10/30/24 13:00 2 10/30/24 12:50 10/30/24 12:40 6 10/30/24 12:30 6 10/30/24 12:20 6 10/30/24 12:10 6 10/30/24 12:00 6 10/30/24 11:50 6 10/30/24 06:19 PG Care Time/CCT Total # of Minutes Spent Total Time Spent with Patient: Total time spent is greater than 50% in coordination of care (as documented) at patient's floor/unit and/or counseling patient: Coding [place] [address] SUB INP/OBS CARE 3/50MIN Patient Type Established Medical Decision Making High Complexity Diagnoses Lumbar disc herniation with radiculopathy M51.16 Left corneal abrasion S05.02XA ADHD F90.9 Foot drop M21.379
[2024-10-30 15:51] LABS: Hematocrit (blood only) 41.2 % (42.0-52.0); Hemoglobin 14.1 g/dl (14.0-18.0); Mean Corpuscular Hemoglobin 30.7 pg (25.0-34.0); Mean Corpuscular Volume 89.8 fL (80.0-100.0); Platelet Count 214 K/uL (130-400); RDW Standard Deviation 41.8 fL (36.4-46.3); Red Blood Count 4.59 M/uL (4.70-6.10); White Blood Count 10.91 K/ul (4.8-10.8)
[2024-10-30 16:07] LABS: Anion Gap 6.0 (3-11); Blood Urea Nitrogen 19.0 mg/dl (6-23); Calcium 8.9 mg/dl (8.6-10.3); Carbon Dioxide 27.0 mmol/L (21-32); Chloride 106.0 mmol/L (98-107); Creatinine Clr Calc Pharmacy 97.8 ml/min; Glucose 136.0 mg/dl (70-99(Fasting)); Potassium 4.2 mmol/L (3.5-5.1); Sodium 139.0 mmol/L (136-145)
[2024-10-30 16:10] LABS: Immature Granulocytes # (auto) 0.03 K/uL (0.01-0.20); Immature Granulocytes % (auto) 0.3 %
[2024-10-30] MEDS: GABAPENTIN 400 MG CAP PO SCH (16:43)
[2024-10-30] MEDS ORDERED: GLUCAGON FOR INJ 1 MG VIAL SQ PRN (16:45)
[2024-10-30] MEDS ORDERED: DEXTROSE 50% 50 ML SYRINGE IV PRN (16:45)
[2024-10-30] MEDS ORDERED: GLUCOSE 10 TAB/TUBE PO PRN (16:45)
[2024-10-30] MEDS ORDERED: CARBOHYDRATES FOR HYPOGLYCEMIA PO PRN (16:45)
[2024-10-30] MEDS ORDERED: GLUCOSE 40% GEL 15 GM TUBE PO PRN (16:45)
[2024-10-30] MEDS: INSULIN ASPART PER UNIT CHARGE SC SCH (17:06)
[2024-10-30] MEDS: ACETAMINOPHEN 1,000 MG/100 ML VIAL IV PRN (17:15)
[2024-10-30] MEDS: ERYTHROMYCIN OP OINT 5 MG/GM 3.5 GM TUBE OPL SCH (17:16)
[2024-10-30] MEDS: HYDROmorphone INJ 0.5 MG/0.5 ML SYR IV PRN (17:55)
[2024-10-30] MEDS ORDERED: ERYTHROMYCIN OP OINT 5 MG/GM 3.5 GM TUBE OPL SCH (18:00)
[2024-10-30] MEDS: DOCUSATE SODIUM/SENNA 50/8.6MG TAB PO SCH (21:43)
[2024-10-31] MEDS: POLYETHYLENE (MIRALAX) 17 GM PACK PO SCH (05:17)
[2024-10-31 06:22] LABS: Hematocrit (blood only) 39.6 % (42.0-52.0); Hemoglobin 13.6 g/dl (14.0-18.0); Immature Granulocytes # (auto) 0.03 K/uL (0.01-0.20); Immature Granulocytes % (auto) 0.2 %; Mean Corpuscular Hemoglobin 30.8 pg (25.0-34.0); Mean Corpuscular Volume 89.6 fL (80.0-100.0); Platelet Count 218 K/uL (130-400); RDW Standard Deviation 42.1 fL (36.4-46.3); Red Blood Count 4.42 M/uL (4.70-6.10); White Blood Count 12.70 K/ul (4.8-10.8)
[2024-10-31 06:47] LABS: Anion Gap 6.0 (3-11); Blood Urea Nitrogen 13.0 mg/dl (6-23); Calcium 9.0 mg/dl (8.6-10.3); Carbon Dioxide 28.0 mmol/L (21-32); Chloride 106.0 mmol/L (98-107); Creatinine Clr Calc Pharmacy 106.3 ml/min; Glucose 110.0 mg/dl (70-99(Fasting)); Potassium 3.9 mmol/L (3.5-5.1); Sodium 140.0 mmol/L (136-145)
--- NOTE | 2024-10-31 07:41 | Orthopedic Progress Note ---
Date of Service October 31, 2024 Subjective Patient seen and examined, postop day 1 from L2-3, L3-4 and L4-5 lumbar decompression. Notes some limited symptoms left eye status post corneal abrasion but not complaining of any significant pain. Has only sat on the edge of the bed, limited activity so far but no new complaints otherwise. Impression: Postop day 1 from above listed 3 level decompression. Will mobilize with physical therapy today and monitor progress. Review of Systems All systems reviewed & are unremarkable except as noted in HPI & below. Physical Exam . Results & Data Results & Data Laboratory Results . Diagnostic Findings . PG Care Time/CCT Total # of Minutes Spent Total Time Spent with Patient: Total time spent is greater than 50% in coordination of care (as documented) at patient's floor/unit and/or counseling patient: Coding Level of Care Code 20120 Post Operative Follow-Up
[2024-10-31] MEDS ORDERED: Nursing to Pharmacy Communication SCH (08:00)
[2024-10-31] MEDS ORDERED: DEXTROAMPHETAMINE/AMPHETAMIME IR 5 MG TAB PO PRN (08:00)
[2024-10-31] MEDS: ONDANSETRON 4 MG OD TAB PO PRN (08:12)
--- NOTE | 2024-10-31 08:14 | Pharmacy Report ---
Glycemic Ortho Sign Off Note - Date of Service October 31, 2024 - Scope Glycemic Pharmacist consulted for glycemic control and to write orders per [facility] inpatient glycemic control protocol. - Objective Accuchecks BSG (last 24hrs):: 10/30/24 10/30/24 10/30/24 14:55 16:46 22:43 Glucose 136 H POC Glucose 134 H 132 H 10/31/24 10/31/24 05:50 07:40 Glucose 110 H POC Glucose 98 HbA1c:: 5.3% 10/08/24 - Assessment * Pt is not maintained on any antidiabetics outpatient, A1c at goal * Recommended regimen for inpatient use is SQ insulin, initiated with correctional only due to excellent glycemic control outpatient and dexamethasone given perioperatively. * Appropriate to DC insulin at discharge * Goal is to maintain BSGs <200 mg/dl (ideally <150 mg/dl) to prevent post op complications - Plan For Inpatient Glycemic Control * Basal insulin * Not needed based on A1c, pre-op BSGs, and minimal risk factors for insulin resistance * Bolus insulin * Patient requests discontinuation of Accuchecks as he reports not being diabetic. No glycemic stressors noted at this time. Orders cancelled per patient request * Pharmacy is signing off of the glycemic consult. We will no longer be making adjustments to inpatient regimen. Please feel free to re-consult if needed. Thank you.
--- NOTE | 2024-10-31 12:48 | Hospitalist Progress Note ---
Date of Service October 31, 2024 Assessment & Plan (1) Lumbar disc herniation with radiculopathy: (2) Left corneal abrasion: (3) ADHD: (4) Foot drop: Plan #S/p lumbar spine decompression L2-L5 decompression with Dr. Gunter on 10/30 Perioperative antibiotics, pain control, fluids, and DVT PPx per the primary team IV antiemetics and pain control as needed Continue gabapentin 400mg p.o. TID; no need to dose reduce as patient's renal function remained stable #Left eye corneal abrasion -improving Patient reported significant pain following procedure on 10/30; however he reports his pain has resolved on 10/31 Not a contact lens wear No foreign bodies identified on clinical exam Continue erythromycin ointment 0.5inch ribbons 4 times per day x 3 days #ADHD Patient reports he takes dextroamphetamine 10 mg tablets daily (5 to 15 mg depending on what he thinks he might need that day) He reports he has not taken them over the past several days, and does not believe he will need them in the hospital Will touch base with pharmacy, dextroamphetamine is non-formulary Put in for one-to-one conversion with Adderall; will place order for Adderall 5mg p.o. TID PRN #Leukocytosis Mild; WBC count 12.70 on 10/31 Suspect stress demargination in the setting of surgery Clinically, patient denies infectious symptoms Continue to monitor #Right foot drop Chronic; noted #Insomnia Continue trazodone PRN HS Thank you for allowing us to participate in the care of this patient, please reach out with any questions or concerns; we will continue to follow. Admission and Anticipated Discharge Date Admission Date: October 30, 2024 Supervising Physician Co-Signing Physician Notes Attending Attestation - Chart reviewed, care plan d/w KASSI Gonzalez. I agree w/ the blevins components of his documentation. Doc Munoz MD Subjective Mr. Ruiz is glad to report he feels much better when compared to yesterday. He reports his left eye pain has completely resolved; 0/10. He denies any changes in his vision, and does report he can focus on objects at the far corner of the room. He does have history of cataract surgery, and does report he has some fogginess in his vision, but reports that things are progressing in a positive direction. No sensitivity to light. No additional eye pain overnight. In regard to his back pain, he reports it is a 2.5 out of 10 at present. He had one episode of lightheadedness earlier today after ambulating throughout the halls; he returned to his room and felt lightheaded, nauseous, and like he had chills. His blood pressure was low at this time, but he laid down in bed and it improved. Patient has not yet had a bowel movement today. However, he did get up and use the bathroom with his walker today, and has been urinating without difficulty. Eating and drinking well. No other complaints at this time. ROS: Patient endorses episode of nausea/lightheadedness following ambulation, and mild lower back pain. Patient denies headache, left eye pain, changes in vision, photophobia, chest pain, chest palpitations, SOB, cough, abdominal pain, N/V/D, changes in urinary bowel habits, or numbness or tingling in the legs. Review of Systems Review of Systems: See HPI above Physical Exam Physical Exam: General: no acute distress; pleasant affect; sitting upright in his chair eating lunch; non-toxic appearing; well-nourished; cooperative; SpO2 96% on RA HEENT: normocephalic, atraumatic; PERRLA w/ EOMs intact; left eye corneal abrasion is difficult to visualize today; vision and hearing appear grossly intact Neck: supple; trachea midline Skin: warm, dry without signs of tenting; no cyanosis; no rashes, bruising, lesions, or erythema noted CV: chest wall NTP; RRR; S1/S2 normal; no murmurs/rubs/gallops; pulses intact and symmetric at radial, DP, and PT Lungs: no acute respiratory distress; symmetrical chest wall expansion; clear breath sounds across all lung arechiga w/o adventitious sounds; no wheezing Back: Upper spine NTP; lower spine NTP around the surgical dressing; dry surgical dressing without signs of erythema, infection, or drainage ABD: Soft, NTP; BS present; no rebound/guarding; mild distention secondary to body habitus MSK: no tics or fasciculations; no edema noted in the LEs b/l, nonerythematous Neuro: A&Ox3; normal mood and affect; fluent speech; no focal deficits; patient reports sensation is intact and symmetric in lower extremities bilaterally assessed via light touch at the knee; mildly diminished sensation in the right foot at site of foot drop Results & Data Results & Data Vital Signs (Past 12 Hours) Vital Signs Temp Pulse Pulse Resp BP Pulse Ox O2 Del Method 10/31/24 08:08 36.6 C 86 85 16 124/74 96 Room Air 10/31/24 03:34 36.6 C 82 18 114/71 97 Room Air PG Care Time/CCT Total # of Minutes Spent Total Time Spent with Patient: Total time spent is greater than 50% in coordination of care (as documented) at patient's floor/unit and/or counseling patient: C[place] [address] SUB INP/OBS CARE 2/35MIN Patient Type Established Medical Decision Making Moderate Complexity Diagnoses Lumbar disc herniation with radiculopathy M51.16 Left corneal abrasion S05.02XA ADHD F90.9 Foot drop M21.379
[2024-10-31] MEDS: LORazepam 0.5 MG TAB PO PRN (14:45)
[2024-11-01 06:16] LABS: Hematocrit (blood only) 37.2 % (42.0-52.0); Hemoglobin 12.4 g/dl (14.0-18.0); Mean Corpuscular Hemoglobin 30.2 pg (25.0-34.0); Mean Corpuscular Volume 90.7 fL (80.0-100.0); Platelet Count 196 K/uL (130-400); RDW Standard Deviation 42.6 fL (36.4-46.3); Red Blood Count 4.10 M/uL (4.70-6.10); White Blood Count 10.19 K/ul (4.8-10.8)
[2024-11-01 06:35] LABS: Anion Gap 6.0 (3-11); Blood Urea Nitrogen 16.0 mg/dl (6-23); Calcium 8.5 mg/dl (8.6-10.3); Carbon Dioxide 27.0 mmol/L (21-32); Chloride 105.0 mmol/L (98-107); Creatinine Clr Calc Pharmacy 103.3 ml/min; Glucose 108.0 mg/dl (70-99(Fasting)); Potassium 3.7 mmol/L (3.5-5.1); Sodium 138.0 mmol/L (136-145)
[2024-11-01 07:18] VITALS: BP 114/75; PULSE 79; RESP 16; TEMP 99; O2SAT 95
--- NOTE | 2024-11-01 08:46 | Orthopedic Progress Note ---
Date of Service November 01, 2024 Subjective Patient seen and examined, he notes distinct improvement of lower extremities when ambulating, some incisional pain. Lumbar dressing removed and changed, incision is unremarkable. Impression: Postoperative day 2 from L2-L5 lumbar decompression with improvement of preoperative symptoms. Will have the patient mobilize physical therapy, he can discharge later today once cleared from physical therapy and medicine. Instructions given for operative site care and follow-up in 2 weeks. Review of Systems All systems reviewed & are unremarkable except as noted in HPI & below. Physical Exam . Results & Data Results & Data Laboratory Results . Diagnostic Findings . PG Care Time/CCT Total # of Minutes Spent Total Time Spent with Patient: Total time spent is greater than 50% in coordination of care (as documented) at patient's floor/unit and/or counseling patient: Coding Level of Care Code 21019 Post Operative Follow-Up
--- NOTE | 2024-11-01 09:37 | Operative Report ---
PG Post Operative Report Pre & Post Diagnosis Operation Date: 10/30/24 07:30 Pre-Op Diagnosis: Lumbar disc herniation with radiculopathy Lumbar stenosis with neurogenic claudication Post-Op Diagnosis: Lumbar disc herniation with radiculopathy Lumbar stenosis with neurogenic claudication I identified the patient and participated in the time-out.: Yes Procedure Operation Date: 10/30/24 07:30 Actual Procedures p L2-L3, L3-L4, L4-L5 Decompression(Not Applicable) - Doc Gunter MD Surgeon Doc Gunter MD [employer] Specialist none Estimated Blood Loss 60 Findings Consistent with Post-Op Diagnosis Specimens none Description of Procedure 1. L4-5 posterior lumbar decompression/laminectomy. (01435) 2. L3-4 posterior lumbar decompression/laminectomy (10159) 3. L2-3 posterior lumbar decompression/laminectomy (09055) Patient was taken operating room after adequate anesthesia was carefully positioned prone on a Dvein frame checked for positioning. After doing so, preprepped was performed to lumbar region followed by fluoroscopy brought in, I marked for the location for the incision followed by prep and drape. Longitudinal incision was then made carried down through the subcutaneous tissues to the spinous processes and then with dissection on either side of the spinous process down to the interlaminar region at the 3 levels. The location was confirmed via fluoroscopy. Operative microscope was brought in and I began the decompression at the L4-5 level with removal of the inferior aspect of the spinous process of L4 and exposure of the interlaminar region. The high-speed bur was then utilized perform bilateral inferior hemilaminectomy along the inferior margin of the L4 lamina and across the superior laminar edge of L5, along the medial facets bilaterally with undercutting the facets and decompression of the dural sac and exiting nerve roots at this level. This process continued with sitting and removal of the thickened ligamentum flavum decompressing the segment. Upon completion Floseal was applied to this region along with a neuro dejuan, I then moved to the L3-4 level where a identical procedure was performed with bilateral hemilaminectomy partial medial facetectomy and decompression of the exiting nerve roots, followed by a left- sided approach to the L2-3 level with decompression of the lateral recess region, removal of disc fragment and decompression of the exiting nerve roots. Operative site was then irrigated and inspected, no issues were noted in terms of dural leakage or bleeding, Floseal was applied along with vancomycin powder, the operative site was closed with 2 layers of 0 Vicryl sutures followed by additional layer of 2-0 Vicryl sutures and sean for the skin. Sterile dressing was applied, the patient was taken recovery room in satisfactory condition. I attest to the content of the Intraoperative Record and any orders documented t herein. Any exceptions are noted below.
== END 2024-11-01 11:55 | disposition home or self-care (01) ==
LOC: 3E 06:10 → ASU 06:10